=== PATIENT | female | born 1980 | race Caucasian/White ===

== ENCOUNTER 2016-08-11 10:37 | Inpatient (IN) | payer OTHER ==
[~2016-08-11] VITALS: Ht 160 cm; Wt 114.8 kg
[2016-08-11 10:42] VITALS: BP 137/74; PULSE 77; RESP 16; TEMP 98; O2SAT 96
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
[2016-08-11] MEDS ORDERED: MORPHINE SULFATE 4 MG/ML INJ IV PUSH ONE ×2 (11:15→14:15)
[2016-08-11] MEDS ORDERED: SODIUM CHLORIDE 0.9% FLUSH 5 ML FLUSH IVF PRN ×2 (11:15→15:30)
[2016-08-11] MEDS ORDERED: ONDANSETRON HCL 4 MG/2 ML VIAL IVP ONE (11:15)
[2016-08-11 11:26] VITALS: RESP 18; O2SAT 97
[2016-08-11 11:29] LABS: AUTOMATED NEUTROPHIL # 5.2 TH/MM3 (1.8-7.7); BASOPHIL % 0.4 % (0.0-2.0); EOSINOPHIL # 0.3 TH/MM3 (0-0.4); EOSINOPHIL % 3.3 % (0.0-4.0); HEMATOCRIT 41.7 % (35.0-46.0); HEMO FLAGS DIFF FINAL; LYMPH % 31.9 % (9.0-44.0); LYMPHOCYTE # 2.9 TH/MM3 (1.0-4.8); MEAN CELL VOLUME 87.2 FL (80.0-100.0); MEAN CORPUSCULAR HGB CONC 33.2 % (32.0-36.0); MONO % 7.3 % (0.0-8.0); NEUT % 57.1 % (16.0-70.0); PLATELET COUNT 215 TH/MM3 (150-450); RED BLOOD COUNT 4.78 MIL/MM3 (4.00-5.30); RED CELL DISTRIBUTION WIDTH 14.8 % (11.6-17.2); WHITE BLOOD COUNT 9.2 TH/MM3 (4.0-11.0)
[2016-08-11 11:36] LABS: APTT (PATIENT) 23.5 SEC (24.3-30.1); INTERNATIONAL NORMALIZED RATIO 0.9 RATIO; PROTHROMBIN TIME - PATIENT 10.1 SEC (9.8-11.6)
[2016-08-11 11:44] LABS: BICARBONATE 23.5 MEQ/L (21.0-32.0); POTASSIUM 3.7 MEQ/L (3.5-5.1)
[2016-08-11] MEDS ORDERED: SODIUM CHLOR 0.9% 1000 ML INJ 1,000 ML IV SCH (12:20)
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
[2016-08-11] MEDS ORDERED: LIDOCAINE 1%/EPINEPHrine 1:100,000 SOLN 20 ML VIAL INFIL ONE (12:30)
[2016-08-11] MEDS ORDERED: TETANUS/DIPHTHERIA TOXOID ADULT 0.5 ML VIAL IM ONE (12:30)
[2016-08-11] MEDS ORDERED: IOHEXOL 350 MG/ML 10 ML VIAL (for RAD DIAG) IV ONE (13:19)
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
[2016-08-11] MEDS ORDERED: Post-op Orders (for Pharmacy) MISC XX ONE (15:30)
[2016-08-11] MEDS ORDERED: NALOXONE HCL 0.4 MG/ML AMP IV PRN (15:30)
[2016-08-11] MEDS: SODIUM CHLOR 0.9% 1000 ML INJ 1,000 ML IV SCH (16:39)
[2016-08-11] MEDS: PANTOPRAZOLE SOD 40 MG DELAYED RELEASE TAB PO SCH (16:40)
[2016-08-11] MEDS: MORPHINE SULFATE 4 MG/ML INJ IV PRN ×4 (16:41→23:43)
[2016-08-11] MEDS: ENOXAPARIN SODIUM 40 MG/0.4 ML SYRINGE SQ SCH (17:00)
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
[2016-08-11 17:49] VITALS: BP 151/80; PULSE 76; RESP 18; O2SAT 97
[2016-08-11] MEDS: oxyCODONE/ACETAMINOPHEN 5 MG/325 MG TAB PO PRN ×2 (18:24→22:28)
[2016-08-11] MEDS: ONDANSETRON HCL 4 MG/2 ML VIAL IV PRN ×2 (18:26→21:43)
[2016-08-11] MEDS: DOCUSATE SODIUM 100 MG CAP PO SCH (21:00)
[2016-08-11 21:35] VITALS: BP 142/83; PULSE 85; RESP 17; TEMP 97.5; O2SAT 94
[2016-08-11] MEDS: SODIUM CHLORIDE 0.9% FLUSH 5 ML FLUSH IVF SCH (21:35)
[2016-08-11] MEDS: CYCLOBENZAPRINE HCL 10 MG TAB PO PRN (21:38)
[2016-08-11] MEDS ORDERED: METOPROLOL TARTRATE 25 MG TAB PO PRN (21:45)
[2016-08-11] MEDS ORDERED: INSULIN HUMAN REGULAR 1,000 UNITS/10 ML VIAL SQ PRN (21:45)
[2016-08-11] MEDS ORDERED: LACTATED RINGER'S 1000 ML IV SCH (21:45)
[2016-08-11] MEDS ORDERED: SODIUM CHLORID 0.9% 500 ML IV SCH (21:45)
[2016-08-12] VITALS (8 sets, daily range): BP systolic 129–189; BP diastolic 60–85; PULSE 77–85; RESP 17–18; TEMP 96.5–98.2; O2SAT 94–97
[2016-08-12] MEDS: SODIUM CHLOR 0.9% 1000 ML INJ 1,000 ML IV SCH (01:28)
[2016-08-12] MEDS: MORPHINE SULFATE 4 MG/ML INJ IV PRN ×3 (01:55→05:50)
[2016-08-12] MEDS: oxyCODONE/ACETAMINOPHEN 5 MG/325 MG TAB PO PRN (02:52)
[2016-08-12] MEDS: CYCLOBENZAPRINE HCL 10 MG TAB PO PRN (02:52)
[2016-08-12] MEDS: ONDANSETRON HCL 4 MG/2 ML VIAL IV PRN (03:55)
[2016-08-12 06:13] LABS: HEMATOCRIT 35.1 % (35.0-46.0); MEAN CELL VOLUME 86.9 FL (80.0-100.0); MEAN CORPUSCULAR HGB CONC 33.4 % (32.0-36.0); PLATELET COUNT 187 TH/MM3 (150-450); RED BLOOD COUNT 4.04 MIL/MM3 (4.00-5.30); RED CELL DISTRIBUTION WIDTH 14.5 % (11.6-17.2); REVIEW FLAG FINAL; WHITE BLOOD COUNT 11.1 TH/MM3 (4.0-11.0)
[2016-08-12 06:35] LABS: BICARBONATE 23.2 MEQ/L (21.0-32.0); MAGNESIUM 1.8 MG/DL (1.5-2.5); POTASSIUM 3.6 MEQ/L (3.5-5.1)
[2016-08-12] MEDS ORDERED: GENTAMICIN SULFATE 80 MG/2 ML VIAL ONE (06:42)
[2016-08-12] MEDS ORDERED: SODIUM CHLOR 0.9% 250 ML INJ 250 ML ONE (06:42)
[2016-08-12] MEDS ORDERED: VANCOMYCIN HCL 1000 MG VIAL ONE (06:42)
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
[2016-08-12] MEDS ORDERED: MORPHINE SULFATE 10 MG/ML INJ IV ONE (07:02)
[2016-08-12] MEDS ORDERED: ACETAMINOPHEN 1000 MG/100 ML VIAL IV ONE (07:10)
[2016-08-12] MEDS ORDERED: HYDROmorphone HCL PF 2 MG/ML VIAL ONE (07:10)
[2016-08-12] MEDS ORDERED: MIDAZOLAM HCL 5 MG/5 ML VIAL ONE (07:12)
[2016-08-12] MEDS ORDERED: BACITRACIN TOP OINT 15 GM TUBE ONE (07:29)
[2016-08-12] MEDS ORDERED: ceFAZolin 2 GM PREMIX 50 ML ONE (07:32)
[2016-08-12] MEDS ORDERED: MORPHINE SULFATE 4 MG/ML INJ IV PUSH PRN (08:15)
--- NOTE | 2016-08-12 08:22 | PD.OP ---
cc: Parish Silva MD Operative Report Date of Surgery: Aug 12, 2016 Preoperative Diagnosis: Comminuted left tibial plateau fracture, left leg compartment syndrome Postoperative Diagnosis: Procedure: Compartment pressure monitor checks, external fixation left leg, closed reduction with manipulation of left tibia bicondylar plateau, fasciotomy of anterior and lateral compartments left leg, application of wound VAC dressing Surgeon: Parish Silva Meteorologist Liaison(s): PRAMOD Field PA-C The surgical procedure was assisted by my physician assistant financial accountant. My P.A. presence was necessary throughout this case for the manipulation and positioning of the surgical extremity. My P.A. was assisting me throughout the duration of this procedure. The skill set of a physician assistant financial accountant was medically necessary to complete this procedure. During the surgical case the light rail signal technician was working at the back table and the physician assistant financial accountant was directly assisting me. Operation and Findings: This patient sustained an injury resulting in comminuted fractures of [left tibial plateau]. Patient was seen and evaluated preoperatively and found to have too much swelling to proceed with open reduction internal fixation. Risk and benefits of surgery were discussed in depth with patient and informed consent was confirmed. Surgical site was marked. Patient was brought to operating room and placed on the OR table. Patient was given IV sedation and GETA. Patient received IV antibiotics and timeout procedure was performed. Operative leg was prepped with alcohol followed by Hibiclens and draped in the usual sterile fashion. Procedure began with compartment pressure monitor checks. Using the [place] pressure monitor gauge the anterior, lateral, and posterior compartments were measured. The anterior and lateral compartments measured 48 mmHg and 50 mmHg. The deep posterior compartment and superficial posterior compartment measured 20 mmHg and 22 mmHg Next attention was turned towards external fixation. Two small incisions were made along the anterior femur and the tibia. Soft tissue was dissected bluntly. Cannulas were placed down to the cortex of bone. Pin sites were predrilled. Synthes BETH-coated pins were placed into the femur and tibia. Fluoroscopy was used to confirm appropriate pin placement. An external fixator construct was now created with clamps and bars. Next attention was turned to reduction. Traction was applied. Fracture was manipulated. Good alignment of the fracture was obtained. Fluoroscopy was used to confirm appropriate alignment of fracture. The external fixator was now tightened to hold reduction. Next attention was turned to fasciotomy. A 5 inch incision was made over the anterolateral calf. Subcutaneous tissue dissected with Bovie. The fascia of the anterior compartment was now opened using Bovie electrocautery. The fascia of the lateral compartment was also opened. The muscle appeared to be healthy and viable. At this point all compartment were palpated and felt to be very soft. Next attention was turned to VAC dressing. A wound VAC dressing was cut to fit over the fasciotomy. VAC dressing was sealed appropriately. Sterile dressings were applied around the external fixator pins. Patient was awakened and transferred to recovery room in stable condition. Parish Silva MD Aug 12, 2016 08:21
[2016-08-12] MEDS ORDERED: NEOSTIGMINE 3 MG/3 ML SYR IV ONE (08:28)
[2016-08-12] MEDS ORDERED: ONDANSETRON HCL 4 MG/2 ML VIAL IV PUSH ONE (08:28)
[2016-08-12] MEDS ORDERED: PROPOFOL 200 MG/20 ML AMP IV ONE (08:28)
[2016-08-12] MEDS ORDERED: INSULIN HUMAN REGULAR 1,000 UNITS/10 ML VIAL SQ PRN (08:45)
[2016-08-12] MEDS ORDERED: LACTATED RINGER'S 1000 ML IV SCH (08:45)
[2016-08-12] MEDS ORDERED: SODIUM CHLORID 0.9% 500 ML IV SCH (08:45)
[2016-08-12] MEDS ORDERED: METOPROLOL TARTRATE 25 MG TAB PO PRN (08:45)
[2016-08-12] MEDS ORDERED: *RESP: ALBUTEROL 2.5 MG/3 ML NEB (PRN) PERIprocedural Use ONLY NEB ONE (08:53)
[2016-08-12] MEDS ORDERED: *morphine SULFATE 8 MG/ML PERIprocedure ONLY ONE ×3 (08:53→09:09)
[2016-08-12] MEDS ORDERED: fentaNYL CITRATE 250 MCG/5 ML AMP ONE (08:58)
[2016-08-12] MEDS: DOCUSATE SODIUM 100 MG CAP PO SCH ×2 (09:00→20:51)
[2016-08-12] MEDS ORDERED: DO NOT ADM ANY ANTICOAGULANT DRUGS XX PRN (09:00)
[2016-08-12] MEDS: SODIUM CHLORIDE 0.9% FLUSH 5 ML FLUSH IVF SCH ×2 (09:00→20:50)
[2016-08-12] MEDS ORDERED: *HYDROmorphone PF 1 MG VIAL PERIprocedural Use ONLY ONE (09:13)
[2016-08-12] MEDS ORDERED: *diphenhydrAMINE HCL 50 MG/ML VIAL PERIprocedural Use ONLY ONE (09:19)
[2016-08-12] MEDS ORDERED: HYDROmorphone HCL PCA 6 MG/30 ML IV ONE (09:35)
[2016-08-12] MEDS: HYDROmorphone HCL PCA 6 MG/30 ML IV SCH ×2 (09:40→18:24)
[2016-08-12] MEDS: LACTATED RINGER'S 1000 ML INJ 1,000 ML IV SCH ×2 (09:40→18:14)
[2016-08-12] MEDS ORDERED: NALOXONE HCL 0.4 MG/ML AMP IV PRN (10:30)
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
[2016-08-12] MEDS: ENOXAPARIN SODIUM 40 MG/0.4 ML SYRINGE SQ SCH (11:29)
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
[2016-08-12] MEDS: PCA - TOTAL MG DILAUDID DELIVERED PER SHIFT SCH ×2 (14:00→20:53)
[2016-08-12] MEDS: KETOROLAC TROMETHAMINE 30 MG/ML (IVP) VIAL IVP SCH ×2 (15:15→20:51)
[2016-08-12] MEDS: ceFAZolin 2 GM PREMIX 50 ML IV SCH ×2 (15:15→21:45)
[2016-08-12] MEDS: PANTOPRAZOLE SOD 40 MG DELAYED RELEASE TAB PO SCH (15:16)
--- NOTE | 2016-08-12 15:32 | RADRPT ---
EXAM DATE/TIME: 08/12/2016 08:56 [facility] COMPARISON: No previous studies available for comparison. INDICATIONS : Left knee external fixation. MEDICAL HISTORY : None. SURGICAL HISTORY : None. ENCOUNTER: Subsequent ACUITY: 2 days PAIN SCORE: Non-responsive. LOCATION: Left tibial plateau FINDINGS: Comminuted fracture the proximal tibia and fibular head is present with intra-articular extension in the lateral tibial plateau. The alignment is anatomic. CONCLUSION: 1. Comminuted fracture as above Bassem Sharp MD on August 12, 2016 at 15:30 Board Certified Radiologist. This report was verified electronically.
[2016-08-12] MEDS: ACETAMINOPHEN/HYDROcodone 325 MG/10 MG TAB PO PRN ×2 (16:28→22:26)
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
[2016-08-12] MEDS: MAGNESIUM HYDROXIDE SUSP 30 ML CUP PO SCH (20:51)
[2016-08-12] MEDS: diphenhydrAMINE HCL 25 MG CAP PO PRN (21:44)
[2016-08-13] VITALS (7 sets, daily range): BP systolic 101–172; BP diastolic 51–71; PULSE 78–86; RESP 18–20; TEMP 96.2–97.7; O2SAT 93–98
[2016-08-13] MEDS: ACETAMINOPHEN/HYDROcodone 325 MG/10 MG TAB PO PRN ×7 (01:11→21:17)
[2016-08-13] MEDS: HYDROmorphone HCL PCA 6 MG/30 ML IV SCH ×3 (01:18→19:05)
[2016-08-13] MEDS: diphenhydrAMINE HCL 25 MG CAP PO PRN (03:07)
[2016-08-13] MEDS: CYCLOBENZAPRINE HCL 10 MG TAB PO PRN ×3 (03:07→21:24)
[2016-08-13] MEDS: PCA - TOTAL MG DILAUDID DELIVERED PER SHIFT SCH ×3 (06:00→22:00)
[2016-08-13] MEDS: KETOROLAC TROMETHAMINE 30 MG/ML (IVP) VIAL IVP SCH ×3 (06:07→21:17)
[2016-08-13] MEDS: ceFAZolin 2 GM PREMIX 50 ML IV SCH ×3 (06:08→22:21)
--- NOTE | 2016-08-13 06:51 | PD.ORT.PN ---
Subjective Subjective Remarks POD 1 s/p fasciotomy and Exfix application to left tibial plateau fx doing well. pain controlled. Objective Vitals Vital Signs Date Time Temp Pulse Resp B/P Pulse Ox O2 Delivery O2 Flow Rate FiO2 08/13/16 06:00 20 08/13/16 05:16 20 08/13/16 04:14 97.2 80 18 140/63 95 08/13/16 01:48 20 08/13/16 01:18 20 08/13/16 00:26 97.2 80 18 113/51 95 08/12/16 21:51 20 08/12/16 20:53 20 08/12/16 20:45 96.5 84 18 129/60 97 08/12/16 18:24 18 08/12/16 16:14 94 21 08/12/16 16:00 97.7 80 18 132/79 95 08/12/16 12:15 Room Air 08/12/16 12:00 96.7 80 18 131/68 94 08/12/16 11:31 94 08/12/16 10:17 97.5 81 18 189/85 95 08/12/16 09:45 98.2 79 14 143/87 96 Nasal Cannula 3 08/12/16 09:40 14 08/12/16 09:30 81 14 165/80 96 Nasal Cannula 3 08/12/16 09:15 82 16 140/86 93 Nasal Cannula 3 08/12/16 09:00 82 16 130/91 96 Nasal Cannula 3 08/12/16 08:45 83 16 103/52 96 Nasal Cannula 3 08/12/16 08:38 98.7 83 16 161/85 98 Nasal Cannula 3 I/O 08/12/16 08/12/16 08/12/16 08/13/16 08/13/16 08/13/16 07:00 15:00 23:00 07:00 15:00 23:00 Intake Total 0 ml 1020 ml 480 ml 1322 ml Output Total 210 ml Balance 0 ml 810 ml 480 ml 1322 ml Intake Oral 0 ml 720 ml 480 ml 480 ml IV Total 300 ml 842 ml Output Urine Total 200 ml Estimated Blood Loss 10 ml # Voids 2 6 1 3 # Bowel Movements 0 0 0 0 Result Diagram: 08/12/16 0550 08/12/16 0550 Imaging Last 24 hours Impressions Foot X-Ray 08/11/16 1226 Signed Impressions: Service Date/Time: Thursday, August 11, 2016 13:30 - CONCLUSION: Unremarkable examination of the right foot. Roderick Pedroza Jr., MD Chest CT 08/11/16 1226 Signed Impressions: Service Date/Time: Thursday, August 11, 2016 13:04 - CONCLUSION: 1. CT imaging through the thorax is within normal limits. 2. 1.8 cm nonspecific low attenuation lesion in the upper aspect of the right lobe of the liver. Craig Zimmerman MD Abdomen/Pelvis CT 08/11/16 1226 Signed Impressions: Service Date/Time: Thursday, August 11, 2016 13:04 - CONCLUSION: 1. 1.7 cm low attenuation lesion in the liver possibly representing a small hemangioma. It is too small to definitively characterize. 2. Sclerotic changes around the right sacroiliac joint suggesting a sacroiliitis. 3. CT imaging through the abdomen and pelvis is otherwise unremarkable. Craig Zimmerman MD Elbow X-Ray 08/11/16 1126 Signed Impressions: Service Date/Time: Thursday, August 11, 2016 12:01 - CONCLUSION: Negative examination Jose Francisco Guy MD Head CT 08/11/16 1115 Signed Impressions: Service Date/Time: Thursday, August 11, 2016 13:04 - CONCLUSION: Normal examination. Jose Francisco Guy MD Cervical Spine CT 08/11/16 1115 Signed Impressions: Service Date/Time: Thursday, August 11, 2016 13:04 - CONCLUSION: Normal examination. Jose Francisco Guy MD Wrist X-Ray 08/11/16 1102 Signed Impressions: Service Date/Time: Thursday, August 11, 2016 12:00 - CONCLUSION: Unremarkable examination of the left wrist. Jose Francisco Guy MD Wrist X-Ray 08/11/16 1102 Signed Impressions: Service Date/Time: Thursday, August 11, 2016 11:57 - CONCLUSION: Unremarkable examination of the right wrist. Jose Francisco Guy MD Tibia/Fibula X-Ray 08/11/16 1102 Signed Impressions: Service Date/Time: Thursday, August 11, 2016 12:08 - CONCLUSION: Fracture of proximal tibia including the plateau and fibular head. Maulik Zimmerman MD FACR Femur X-Ray 08/11/16 1102 Signed Impressions: Service Date/Time: Thursday, August 11, 2016 13:34 - CONCLUSION: Intact femur . Large joint effusion suprapatellar bursa. Fractures of proximal tibia and fibula Jose Francisco Guy MD Objective Remarks LLE: +exfix. pinsites bleeding. wound vac in place and good seal. compartments softer. good dorsiflexion. NVI Assessment & Plan Assessment and Plan 1) Left Tibial Plateau fx with compartment syndrome s/p fasciotomy and exfix - POD 1 NWB -elevat -maintain vac -will recheck swelling thursday for potential fasciotomy closure 2) Bialteral Wrist sprains -monitor -WBAT Johnathon Swan Aug 13, 2016 06:51
[2016-08-13] MEDS ORDERED: LACTULOSE SYRUP 20 GM/30 ML CUP PO ONE (07:45)
[2016-08-13 08:28] LABS: HEMATOCRIT 28.7 % (35.0-46.0); REVIEW FLAG FINAL
[2016-08-13] MEDS: DOCUSATE SODIUM 50 MG/SENNA 8.6 MG TAB PO SCH ×2 (09:00→21:16)
[2016-08-13] MEDS: SODIUM CHLORIDE 0.9% FLUSH 5 ML FLUSH IVF SCH ×2 (09:00→21:17)
[2016-08-13] MEDS: FAMOTIDINE 20 MG TAB PO SCH ×2 (09:05→21:17)
[2016-08-13] MEDS: LACTATED RINGER'S 1000 ML INJ 1,000 ML IV SCH (11:37)
[2016-08-13] MEDS: ENOXAPARIN SODIUM 40 MG/0.4 ML SYRINGE SQ SCH (18:35)
[2016-08-13] MEDS: MAGNESIUM HYDROXIDE SUSP 30 ML CUP PO SCH (21:00)
[2016-08-14] VITALS (7 sets, daily range): BP systolic 106–151; BP diastolic 51–81; PULSE 77–102; RESP 16–20; TEMP 96.6–99.9; O2SAT 96–99
[2016-08-14] MEDS: LACTATED RINGER'S 1000 ML INJ 1,000 ML IV SCH ×3 (00:14→21:26)
[2016-08-14] MEDS: ACETAMINOPHEN/HYDROcodone 325 MG/10 MG TAB PO PRN ×8 (00:23→21:25)
[2016-08-14] MEDS: CYCLOBENZAPRINE HCL 10 MG TAB PO PRN ×4 (03:39→21:25)
[2016-08-14] MEDS: HYDROmorphone HCL PCA 6 MG/30 ML IV SCH ×2 (05:12→16:01)
[2016-08-14] MEDS: PCA - TOTAL MG DILAUDID DELIVERED PER SHIFT SCH ×3 (05:20→22:00)
[2016-08-14] MEDS: KETOROLAC TROMETHAMINE 30 MG/ML (IVP) VIAL IVP SCH (06:06)
[2016-08-14] MEDS: ceFAZolin 2 GM PREMIX 50 ML IV SCH (06:06)
--- NOTE | 2016-08-14 06:42 | PD.ORT.PN ---
Subjective Subjective Remarks POD 2 s/p fasciotomy and Exfix application to left tibial plateau fx doing well. pain controlled. Objective Vitals Vital Signs Date Time Temp Pulse Resp B/P Pulse Ox O2 Delivery O2 Flow Rate FiO2 08/14/16 05:20 18 08/14/16 05:12 18 08/14/16 04:00 96.6 90 20 145/73 96 08/14/16 00:00 97.1 77 20 139/81 96 08/13/16 22:00 14 08/13/16 20:00 97.4 78 20 172/71 98 08/13/16 19:05 18 08/13/16 16:00 96.2 86 18 140/68 96 08/13/16 12:00 97.6 83 18 101/51 93 08/13/16 09:40 97 21 08/13/16 08:00 97.7 80 18 118/62 94 08/13/16 07:07 20 I/O 08/13/16 08/13/16 08/13/16 08/14/16 08/14/16 08/14/16 07:00 15:00 23:00 07:00 15:00 23:00 Intake Total 1322 ml 1228 ml 1061 ml 676 ml Output Total 200 ml 50 ml 50 ml Balance 1322 ml 1028 ml 1011 ml 626 ml Intake Oral 480 ml 960 ml 750 ml 480 ml IV Total 842 ml 268 ml 311 ml 196 ml Drainage Total 200 ml 50 ml 50 ml # Voids 3 3 3 1 # Bowel Movements 0 0 Result Diagram: 08/13/16 0710 08/12/16 0550 Imaging Last 24 hours Impressions Foot X-Ray 08/11/161225 Signed Impressions: Service Date/Time: Thursday, August 11, 2016 13:30 - CONCLUSION: Unremarkable examination of the right foot. Roderick Pedroza Jr., MD Chest CT 08/11/161225 Signed Impressions: Service Date/Time: Thursday, August 11, 2016 13:04 - CONCLUSION: 1. CT imaging through the thorax is within normal limits. 2. 1.8 cm nonspecific low attenuation lesion in the upper aspect of the right lobe of the liver. Craig Zimmerman MD Abdomen/Pelvis CT 08/11/161225 Signed Impressions: Service Date/Time: Thursday, August 11, 2016 13:04 - CONCLUSION: 1. 1.7 cm low attenuation lesion in the liver possibly representing a small hemangioma. It is too small to definitively characterize. 2. Sclerotic changes around the right sacroiliac joint suggesting a sacroiliitis. 3. CT imaging through the abdomen and pelvis is otherwise unremarkable. Craig Zimmerman MD Elbow X-Ray 08/11/16 1126 Signed Impressions: Service Date/Time: Thursday, August 11, 2016 12:01 - CONCLUSION: Negative examination Jose Francisco Guy MD Head CT 08/11/16 1115 Signed Impressions: Service Date/Time: Thursday, August 11, 2016 13:04 - CONCLUSION: Normal examination. Jose Francisco Guy MD Cervical Spine CT 08/11/16 1115 Signed Impressions: Service Date/Time: Thursday, August 11, 2016 13:04 - CONCLUSION: Normal examination. Jose Francisco Guy MD Wrist X-Ray 08/11/16 1102 Signed Impressions: Service Date/Time: Thursday, August 11, 2016 12:00 - CONCLUSION: Unremarkable examination of the left wrist. Jose Francisco Guy MD Wrist X-Ray 08/11/16 1102 Signed Impressions: Service Date/Time: Thursday, August 11, 2016 11:57 - CONCLUSION: Unremarkable examination of the right wrist. Jose Francisco Guy MD Tibia/Fibula X-Ray 08/11/16 1102 Signed Impressions: Service Date/Time: Thursday, August 11, 2016 12:08 - CONCLUSION: Fracture of proximal tibia including the plateau and fibular head. Maulik Zimmerman MD FACR Femur X-Ray 08/11/16 1102 Signed Impressions: Service Date/Time: Thursday, August 11, 2016 13:34 - CONCLUSION: Intact femur . Large joint effusion suprapatellar bursa. Fractures of proximal tibia and fibula Jose Francisco Guy MD Objective Remarks LLE: +exfix. pinsites bleeding. wound vac in place and good seal. compartments softer. good dorsiflexion. NVI Assessment & Plan Assessment and Plan 1) Left Tibial Plateau fx with compartment syndrome s/p fasciotomy and exfix - POD 2 NWB -elevat -maintain vac -will recheck swelling thursday for potential fasciotomy closure -npo after MN -sign consents 2) Bialteral Wrist sprains -monitor -WBAT Johnathon Swan Aug 14, 2016 06:42
[2016-08-14] MEDS: SODIUM CHLORIDE 0.9% FLUSH 5 ML FLUSH IVF SCH ×2 (09:00→21:00)
[2016-08-14] MEDS: DOCUSATE SODIUM 50 MG/SENNA 8.6 MG TAB PO SCH ×2 (09:14→21:24)
[2016-08-14] MEDS: BISACODYL EC 5 MG TABEC PO PRN ×2 (09:14→21:25)
[2016-08-14] MEDS: FAMOTIDINE 20 MG TAB PO SCH ×2 (09:15→21:24)
[2016-08-14] MEDS: ENOXAPARIN SODIUM 40 MG/0.4 ML SYRINGE SQ SCH (15:56)
[2016-08-14] MEDS: MAGNESIUM HYDROXIDE SUSP 30 ML CUP PO SCH (21:00)
[2016-08-15] VITALS: BP 156/76; PULSE 99; RESP 17; TEMP 99.4; O2SAT 96
[2016-08-15] MEDS: ACETAMINOPHEN/HYDROcodone 325 MG/10 MG TAB PO PRN ×7 (00:16→20:46)
[2016-08-15] MEDS: HYDROmorphone HCL PCA 6 MG/30 ML IV SCH ×2 (01:47→16:12)
[2016-08-15] MEDS: CYCLOBENZAPRINE HCL 10 MG TAB PO PRN ×3 (03:27→18:08)
[2016-08-15 04:00] VITALS: BP 119/69; PULSE 87; RESP 16; TEMP 97.9; O2SAT 94
[2016-08-15] MEDS: PCA - TOTAL MG DILAUDID DELIVERED PER SHIFT SCH ×3 (06:00→22:00)
--- NOTE | 2016-08-15 06:45 | PD.ORT.PN ---
Subjective Subjective Remarks POD 3 s/p fasciotomy and Exfix application to left tibial plateau fx doing well. pain controlled. Objective Vitals Vital Signs Date Time Temp Pulse Resp B/P Pulse Ox O2 Delivery O2 Flow Rate FiO2 08/15/16 04:00 97.9 87 16 119/69 94 08/15/16 02:17 16 08/15/16 01:47 16 08/15/16 00:00 99.4 99 17 156/76 96 08/14/16 22:00 16 08/14/16 20:00 99.9 102 17 151/73 97 08/14/16 16:20 97.2 82 18 120/64 97 08/14/16 16:01 16 08/14/16 15:56 16 08/14/16 12:08 96.9 81 17 106/51 96 08/14/16 10:10 99 21 08/14/16 08:14 97.0 77 16 149/68 96 I/O 08/14/16 08/14/16 08/14/16 08/15/16 08/15/16 08/15/16 07:00 15:00 23:00 07:00 15:00 23:00 Intake Total 676 ml 958 ml 0 ml Output Total 50 ml 100 ml Balance 626 ml 858 ml 0 ml Intake Oral 480 ml 480 ml 0 ml IV Total 196 ml 478 ml Drainage Total 50 ml 100 ml # Voids 1 1 2 # Bowel Movements 0 0 Result Diagram: 08/13/16 0710 08/12/16 0550 Imaging Last 24 hours Impressions Foot X-Ray 08/11/166 Signed Impressions: Service Date/Time: Thursday, August 11, 2016 13:30 - CONCLUSION: Unremarkable examination of the right foot. Roderick Pedroza Jr., MD Chest CT 08/11/16 1226 Signed Impressions: Service Date/Time: Thursday, August 11, 2016 13:04 - CONCLUSION: 1. CT imaging through the thorax is within normal limits. 2. 1.8 cm nonspecific low attenuation lesion in the upper aspect of the right lobe of the liver. Craig Zimmerman MD Abdomen/Pelvis CT 08/11/166 Signed Impressions: Service Date/Time: Thursday, August 11, 2016 13:04 - CONCLUSION: 1. 1.7 cm low attenuation lesion in the liver possibly representing a small hemangioma. It is too small to definitively characterize. 2. Sclerotic changes around the right sacroiliac joint suggesting a sacroiliitis. 3. CT imaging through the abdomen and pelvis is otherwise unremarkable. Craig Zimmerman MD Elbow X-Ray 08/11/16 1126 Signed Impressions: Service Date/Time: Thursday, August 11, 2016 12:01 - CONCLUSION: Negative examination Jose Francisco Guy MD Head CT 08/11/16 1115 Signed Impressions: Service Date/Time: Thursday, August 11, 2016 13:04 - CONCLUSION: Normal examination. Jose Francisco Guy MD Cervical Spine CT 08/11/16 1115 Signed Impressions: Service Date/Time: Thursday, August 11, 2016 13:04 - CONCLUSION: Normal examination. Jose Francisco Guy MD Wrist X-Ray 08/11/16 1102 Signed Impressions: Service Date/Time: Thursday, August 11, 2016 12:00 - CONCLUSION: Unremarkable examination of the left wrist. Jose Francisco Guy MD Wrist X-Ray 08/11/16 1102 Signed Impressions: Service Date/Time: Thursday, August 11, 2016 11:57 - CONCLUSION: Unremarkable examination of the right wrist. Jose Francisco Guy MD Tibia/Fibula X-Ray 08/11/16 1102 Signed Impressions: Service Date/Time: Thursday, August 11, 2016 12:08 - CONCLUSION: Fracture of proximal tibia including the plateau and fibular head. Maulik Zimmerman MD FACR Femur X-Ray 08/11/16 1102 Signed Impressions: Service Date/Time: Thursday, August 11, 2016 13:34 - CONCLUSION: Intact femur . Large joint effusion suprapatellar bursa. Fractures of proximal tibia and fibula Jose Francisco Guy MD Objective Remarks LLE: +exfix. pinsites bleeding. wound vac in place and good seal. compartments softer. good dorsiflexion. NVI Assessment & Plan Assessment and Plan 1) Left Tibial Plateau fx with compartment syndrome s/p fasciotomy and exfix - POD 3 NWB -elevate -maintain vac -plan for surgery today for fasciotomy closure 2) Bialteral Wrist sprains -monitor -WBAT Johnathon Swan Aug 15, 2016 06:45
[2016-08-15] MEDS: SODIUM CHLORIDE 0.9% FLUSH 5 ML FLUSH IVF SCH ×2 (07:34→20:46)
[2016-08-15] MEDS: DOCUSATE SODIUM 50 MG/SENNA 8.6 MG TAB PO SCH ×2 (07:34→20:46)
[2016-08-15] MEDS: FAMOTIDINE 20 MG TAB PO SCH ×2 (07:34→20:46)
[2016-08-15 08:00] VITALS: BP 122/72; PULSE 98; RESP 20; TEMP 96.4; O2SAT 98
[2016-08-15] MEDS ORDERED: LIDOCAINE HCL 2% JELLY 5 ML SYRINGE ONE (09:56)
[2016-08-15] MEDS ORDERED: ACETAMINOPHEN 1000 MG/100 ML VIAL IV ONE (10:23)
[2016-08-15] MEDS ORDERED: MIDAZOLAM HCL 2 MG/2 ML VIAL ONE (10:23)
[2016-08-15] MEDS ORDERED: FAMOTIDINE 20 MG/2 ML VIAL ONE (10:23)
[2016-08-15] MEDS ORDERED: ONDANSETRON HCL 4 MG/2 ML VIAL IV PUSH ONE (10:38)
[2016-08-15] MEDS ORDERED: PROPOFOL 200 MG/20 ML AMP IV ONE (10:38)
[2016-08-15] MEDS ORDERED: NEOSTIGMINE 3 MG/3 ML SYR IV ONE (10:38)
[2016-08-15] MEDS ORDERED: GENTAMICIN SULFATE 80 MG/2 ML VIAL XX ONE (11:33)
[2016-08-15] MEDS ORDERED: VANCOMYCIN HCL 1000 MG VIAL ONE (11:36)
[2016-08-15] MEDS ORDERED: ceFAZolin INJ 1,000 MG VIAL ONE (11:36)
[2016-08-15] MEDS ORDERED: SODIUM CHLOR 0.9% 250 ML INJ 250 ML ONE (11:37)
[2016-08-15] MEDS: LACTATED RINGER'S 1000 ML INJ 1,000 ML IV SCH (11:52)
[2016-08-15] MEDS ORDERED: BACITRACIN TOP OINT 15 GM TUBE ONE (11:52)
--- NOTE | 2016-08-15 11:57 | PD.OP ---
cc: Parish Silva MD Operative Report Date of Surgery: Aug 15, 2016 Preoperative Diagnosis: Open left leg fasciotomy Postoperative Diagnosis: Same Procedure: Left leg fasciotomy wound closure, wound VAC application Anesthesia: Gen. Surgeon: Parish Silva Lollypop Machine Operator(s): PRAMOD Lozano PA-C The surgical procedure was assisted by my physician grooming assistant. My P.A. presence was necessary throughout this case for the manipulation and positioning of the surgical extremity. My P.A. was assisting me throughout the duration of this procedure. The skill set of a physician grooming assistant was medically necessary to complete this procedure. During the surgical case the surgical instrument repair specialist was working at the back table and the physician grooming assistant was directly assisting me. Operation and Findings: Lynda presented initially with a left tibial plateau fracture. She developed a compartment syndrome which needed fasciotomy. Swelling has improved. Informed consent was obtained and operative site was marked. She was brought to the operating room. She was given IV sedation and general anesthesia. Left leg was prepped with alcohol followed by Hibiclens and draped in usual sterile fashion. She received IV antibiotic's. Procedure began with examination of the wound. Overall the wound was clean. There was no necrotic muscle. The muscle appeared to be healthy and viable. Wound was thoroughly irrigated with sterile saline. At this point attention was turned to closure. Subcutaneous tissue was reapproximated with 3-0 PDS. Skin was now closed with 3-0 nylon. A combination of retention suture and vertical mattress sutures were utilized. The wound was completely closed. There was minimal skin tension after completion of closure. The compartments appeared soft to palpation. Dorsalis pedis pulses palpable. Dressings were applied. An incisional wound VAC was applied over the incision. VAC dressing was sealed appropriately. Patient was transferred to recovery in stable condition. Parish Silva MD Aug 15, 2016 11:57
[2016-08-15] MEDS ORDERED: SODIUM CHLORIDE 0.9% FLUSH 5 ML FLUSH IVF PRN (12:00)
[2016-08-15] MEDS ORDERED: Post-op Orders (for Pharmacy) MISC XX ONE (12:00)
[2016-08-15] MEDS ORDERED: DO NOT ADM ANY ANTICOAGULANT DRUGS XX PRN (12:36)
[2016-08-15] MEDS ORDERED: *RESP: ALBUTEROL 2.5 MG/3 ML NEB (PRN) PERIprocedural Use ONLY NEB ONE (12:38)
[2016-08-15] MEDS ORDERED: *morphine SULFATE 8 MG/ML PERIprocedure ONLY ONE (13:01)
[2016-08-15] MEDS: KETOROLAC TROMETHAMINE 30 MG/ML (IVP) VIAL IVP SCH ×2 (14:00→22:33)
[2016-08-15] MEDS ORDERED: fentaNYL CITRATE 250 MCG/5 ML AMP ONE (14:34)
[2016-08-15 16:00] VITALS: BP 158/80; PULSE 94; RESP 20; TEMP 96.3; O2SAT 95
[2016-08-15 16:01] VITALS: O2SAT 95
[2016-08-15 20:08] VITALS: BP 147/63; PULSE 90; RESP 18; TEMP 97.8; O2SAT 94
[2016-08-15] MEDS: MAGNESIUM HYDROXIDE SUSP 30 ML CUP PO SCH (20:46)
[2016-08-15] MEDS: ceFAZolin 2 GM PREMIX 50 ML IV SCH (20:46)
[2016-08-15] MEDS ORDERED: SODIUM CHLORIDE 0.9% FLUSH 5 ML FLUSH IVF SCH (21:00)
[2016-08-16] VITALS (7 sets, daily range): BP systolic 125–159; BP diastolic 60–78; PULSE 69–85; RESP 16–20; TEMP 96.6–97.8; O2SAT 95–97
[2016-08-16] MEDS: ACETAMINOPHEN/HYDROcodone 325 MG/10 MG TAB PO PRN ×7 (00:09→22:26)
[2016-08-16] MEDS: CYCLOBENZAPRINE HCL 10 MG TAB PO PRN ×4 (00:09→20:19)
[2016-08-16] MEDS: LACTATED RINGER'S 1000 ML INJ 1,000 ML IV SCH ×2 (01:02→12:52)
[2016-08-16] MEDS: ceFAZolin 2 GM PREMIX 50 ML IV SCH ×2 (04:08→12:06)
[2016-08-16] MEDS: HYDROmorphone HCL PCA 6 MG/30 ML IV SCH ×2 (05:22→17:20)
[2016-08-16] MEDS: KETOROLAC TROMETHAMINE 30 MG/ML (IVP) VIAL IVP SCH ×3 (05:30→22:25)
[2016-08-16] MEDS: PCA - TOTAL MG DILAUDID DELIVERED PER SHIFT SCH ×3 (06:00→22:00)
[2016-08-16 06:39] LABS: HEMATOCRIT 25.2 % (35.0-46.0); REVIEW FLAG FINAL
--- NOTE | 2016-08-16 07:45 | PD.ORT.PN ---
Subjective Subjective Remarks Doing 'fine'. Moderate left knee and leg pain but not increasing. Able to get some rest last night. Motivated to improve. No new complaints otherwise. No CP or SOB. Objective Vitals Vital Signs Date Time Temp Pulse Resp B/P Pulse Ox O2 Delivery O2 Flow Rate FiO2 08/16/16 06:00 16 08/16/16 05:22 16 08/16/16 04:11 97.6 69 17 137/60 95 08/16/16 00:17 97.8 85 17 125/61 96 08/15/16 22:00 16 08/15/16 20:08 97.8 90 18 147/63 94 08/15/16 16:12 16 08/15/16 16:01 95 Nasal Cannula 2.00 08/15/16 16:00 96.3 94 20 158/80 95 08/15/16 14:00 97.9 83 15 139/63 95 Nasal Cannula 3 08/15/16 13:50 84 15 137/75 96 Nasal Cannula 3 08/15/16 13:35 77 15 143/82 96 Nasal Cannula 4 08/15/16 13:20 79 15 137/82 92 Nasal Cannula 4 08/15/16 13:05 79 15 122/67 92 Nasal Cannula 4 08/15/16 12:50 77 13 141/84 96 Simple Mask 6 08/15/16 12:35 97.7 88 13 132/83 91 Simple Mask 6 08/15/16 08:00 96.4 98 20 122/72 98 I/O 08/15/16 08/15/16 08/15/16 08/16/16 08/16/16 08/16/16 07:00 15:00 23:00 07:00 15:00 23:00 Intake Total 259 ml 650 ml 240 ml 720 ml Output Total 0 ml Balance 259 ml 650 ml 240 ml 720 ml Intake Oral 0 ml 240 ml 720 ml IV Total 259 ml 150 ml Other 500 ml Stool Total 0 ml # Voids 2 2 1 # Bowel Movements 0 0 Result Diagram: 08/16/16 0530 08/12/16 0550 Imaging Last 24 hours Impressions Foot X-Ray 08/11/166 Signed Impressions: Service Date/Time: Thursday, August 11, 2016 13:30 - CONCLUSION: Unremarkable examination of the right foot. Roderick Pedroza Jr., MD Chest CT 08/11/16 1226 Signed Impressions: Service Date/Time: Thursday, August 11, 2016 13:04 - CONCLUSION: 1. CT imaging through the thorax is within normal limits. 2. 1.8 cm nonspecific low attenuation lesion in the upper aspect of the right lobe of the liver. Craig Zimmerman MD Abdomen/Pelvis CT 08/11/16 1226 Signed Impressions: Service Date/Time: Thursday, August 11, 2016 13:04 - CONCLUSION: 1. 1.7 cm low attenuation lesion in the liver possibly representing a small hemangioma. It is too small to definitively characterize. 2. Sclerotic changes around the right sacroiliac joint suggesting a sacroiliitis. 3. CT imaging through the abdomen and pelvis is otherwise unremarkable. Craig Zimmerman MD Elbow X-Ray 08/11/16 1126 Signed Impressions: Service Date/Time: Thursday, August 11, 2016 12:01 - CONCLUSION: Negative examination Jose Francisco Guy MD Head CT 08/11/16 1115 Signed Impressions: Service Date/Time: Thursday, August 11, 2016 13:04 - CONCLUSION: Normal examination. Jose Francisco Guy MD Cervical Spine CT 08/11/16 1115 Signed Impressions: Service Date/Time: Thursday, August 11, 2016 13:04 - CONCLUSION: Normal examination. Jose Francisco Guy MD Wrist X-Ray 08/11/16 1102 Signed Impressions: Service Date/Time: Thursday, August 11, 2016 12:00 - CONCLUSION: Unremarkable examination of the left wrist. Jose Francisco Guy MD Wrist X-Ray 08/11/16 1102 Signed Impressions: Service Date/Time: Thursday, August 11, 2016 11:57 - CONCLUSION: Unremarkable examination of the right wrist. Jose Francisco Guy MD Tibia/Fibula X-Ray 08/11/16 1102 Signed Impressions: Service Date/Time: Thursday, August 11, 2016 12:08 - CONCLUSION: Fracture of proximal tibia including the plateau and fibular head. Maulik Zimmerman MD FACR Femur X-Ray 08/11/16 1102 Signed Impressions: Service Date/Time: Thursday, August 11, 2016 13:34 - CONCLUSION: Intact femur . Large joint effusion suprapatellar bursa. 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
[2016-08-16] MEDS: DOCUSATE SODIUM 50 MG/SENNA 8.6 MG TAB PO SCH ×2 (08:25→20:20)
[2016-08-16] MEDS: BISACODYL EC 5 MG TABEC PO PRN ×2 (08:27→20:20)
[2016-08-16] MEDS: FAMOTIDINE 20 MG TAB PO SCH ×2 (08:28→20:19)
[2016-08-16] MEDS: SODIUM CHLORIDE 0.9% FLUSH 5 ML FLUSH IVF SCH ×2 (08:29→20:21)
[2016-08-16] MEDS: ENOXAPARIN SODIUM 40 MG/0.4 ML SYRINGE SQ SCH (12:07)
[2016-08-16] MEDS ORDERED: POLYETHYLENE GLYCOL 17 GM PKG PO PRN (14:00)
[2016-08-16] MEDS: MAGNESIUM HYDROXIDE SUSP 30 ML CUP PO SCH (20:21)
[2016-08-17] VITALS (7 sets, daily range): BP systolic 138–152; BP diastolic 64–71; PULSE 77–87; RESP 16–20; TEMP 96.5–97.9; O2SAT 94–99
[2016-08-17] MEDS: ACETAMINOPHEN/HYDROcodone 325 MG/10 MG TAB PO PRN ×7 (01:16→22:12)
[2016-08-17] MEDS: LACTATED RINGER'S 1000 ML INJ 1,000 ML IV SCH ×2 (01:22→20:37)
[2016-08-17] MEDS: CYCLOBENZAPRINE HCL 10 MG TAB PO PRN ×4 (02:28→20:35)
[2016-08-17] MEDS: PCA - TOTAL MG DILAUDID DELIVERED PER SHIFT SCH ×3 (05:05→20:38)
[2016-08-17] MEDS: HYDROmorphone HCL PCA 6 MG/30 ML IV SCH ×2 (05:05→17:21)
[2016-08-17] MEDS: KETOROLAC TROMETHAMINE 30 MG/ML (IVP) VIAL IVP SCH (05:28)
[2016-08-17] MEDS: BISACODYL 10 MG SUPP RECTAL PRN (06:06)
--- NOTE | 2016-08-17 08:06 | PD.ORT.PN ---
Subjective Subjective Remarks Still doing well. Moderate left knee and leg pain but not increasing. Able to rest at night. No new complaints otherwise. No CP or SOB. Questions about further surgery. Objective Vitals Vital Signs Date Time Temp Pulse Resp B/P Pulse Ox O2 Delivery O2 Flow Rate FiO2 08/17/16 05:05 16 08/17/16 05:05 18 08/17/16 04:25 97.9 86 16 138/70 96 08/17/16 00:00 97.3 77 20 152/69 95 08/16/16 22:00 18 08/16/16 20:00 96.6 70 16 140/76 97 08/16/16 17:50 18 08/16/16 17:20 18 08/16/16 16:00 96.6 84 18 159/77 96 08/16/16 14:00 18 08/16/16 12:00 96.7 70 18 135/69 96 08/16/16 10:52 97 21 I/O 08/16/16 08/16/16 08/16/16 08/17/16 08/17/16 08/17/16 07:00 15:00 23:00 07:00 15:00 23:00 Intake Total 720 ml 1785 ml 600 ml 720 ml Output Total 0 ml 800 ml 0 ml Balance 720 ml 985 ml 600 ml 720 ml Intake Oral 720 ml 720 ml 600 ml 720 ml IV Total 1065 ml Output Urine Total 800 ml Stool Total 0 ml Drainage Total 0 ml 0 ml # Voids 1 2 2 2 Result Diagram: 08/16/16 0530 Imaging Last 24 hours Impressions Foot X-Ray 08/11/161225 Signed Impressions: Service Date/Time: Thursday, August 11, 2016 13:30 - CONCLUSION: Unremarkable examination of the right foot. Roderick Pedroza Jr., MD Chest CT 08/11/166 Signed Impressions: Service Date/Time: Thursday, August 11, 2016 13:04 - CONCLUSION: 1. CT imaging through the thorax is within normal limits. 2. 1.8 cm nonspecific low attenuation lesion in the upper aspect of the right lobe of the liver. Craig Zimmerman MD Abdomen/Pelvis CT 08/11/166 Signed Impressions: Service Date/Time: Thursday, August 11, 2016 13:04 - CONCLUSION: 1. 1.7 cm low attenuation lesion in the liver possibly representing a small hemangioma. It is too small to definitively characterize. 2. Sclerotic changes around the right sacroiliac joint suggesting a sacroiliitis. 3. CT imaging through the abdomen and pelvis is otherwise unremarkable. Craig Zimmerman MD Elbow X-Ray 08/11/16 1126 Signed Impressions: Service Date/Time: Thursday, August 11, 2016 12:01 - CONCLUSION: Negative examination Jose Francisco Guy MD Head CT 08/11/16 1115 Signed Impressions: Service Date/Time: Thursday, August 11, 2016 13:04 - CONCLUSION: Normal examination. Jose Francisco Guy MD Cervical Spine CT 08/11/16 1115 Signed Impressions: Service Date/Time: Thursday, August 11, 2016 13:04 - CONCLUSION: Normal examination. Jose Francisco Guy MD Wrist X-Ray 08/11/16 1102 Signed Impressions: Service Date/Time: Thursday, August 11, 2016 12:00 - CONCLUSION: Unremarkable examination of the left wrist. Jose Francisco Guy MD Wrist X-Ray 08/11/16 1102 Signed Impressions: Service Date/Time: Thursday, August 11, 2016 11:57 - CONCLUSION: Unremarkable examination of the right wrist. Jose Francisco Guy MD Tibia/Fibula X-Ray 08/11/16 110 Signed Impressions: Service Date/Time: Thursday, August 11, 2016 12:08 - CONCLUSION: Fracture of proximal tibia including the plateau and fibular head. Maulik Zimmerman MD FACR Femur X-Ray 08/11/16 110 Signed Impressions: Service Date/Time: Thursday, August 11, 2016 13:34 - CONCLUSION: Intact femur . Large joint effusion suprapatellar bursa. 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 Due to age will try to avoid transfusion. Begin Ferrous sulfate 325mg BID. Will not order NPO order at this time. I believe Parish Sharma will be out early this week. Likely will not be able to do surgery until the end of this week or next. Gi Miller Aug 17, 2016 08:06
[2016-08-17] MEDS: DOCUSATE SODIUM 50 MG/SENNA 8.6 MG TAB PO SCH ×2 (08:20→20:36)
[2016-08-17] MEDS: FAMOTIDINE 20 MG TAB PO SCH ×2 (08:20→20:35)
[2016-08-17] MEDS: SODIUM CHLORIDE 0.9% FLUSH 5 ML FLUSH IVF SCH ×2 (08:21→20:36)
[2016-08-17] MEDS: ENOXAPARIN SODIUM 40 MG/0.4 ML SYRINGE SQ SCH (11:10)
[2016-08-17] MEDS: FERROUS SULFATE 325 MG (65 MG ELEMENTAL IRON) TAB PO SCH ×2 (11:11→20:33)
[2016-08-17] MEDS: MAGNESIUM HYDROXIDE SUSP 30 ML CUP PO SCH (20:36)
[2016-08-17] MEDS: diphenhydrAMINE HCL 25 MG CAP PO PRN (20:55)
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
[2016-08-18] VITALS (7 sets, daily range): BP systolic 130–175; BP diastolic 59–76; PULSE 81–89; RESP 16–19; TEMP 97.1–97.9; O2SAT 93–98
[2016-08-18] MEDS: ACETAMINOPHEN/HYDROcodone 325 MG/10 MG TAB PO PRN ×7 (01:02→22:42)
[2016-08-18] MEDS: HYDROmorphone HCL PCA 6 MG/30 ML IV SCH ×2 (03:38→20:49)
[2016-08-18] MEDS: PCA - TOTAL MG DILAUDID DELIVERED PER SHIFT SCH ×3 (06:00→22:00)
--- NOTE | 2016-08-18 07:01 | PD.ORT.PN ---
Subjective Subjective Remarks States the pain is improved since yesterday. She continues to use a pain control pump she is working on moving her ankle and her toes Objective Vitals Vital Signs Date Time Temp Pulse Resp B/P Pulse Ox O2 Delivery O2 Flow Rate FiO2 08/18/16 04:00 97.9 89 16 144/62 93 08/18/16 03:38 18 08/18/16 00:00 97.3 86 17 145/74 95 08/17/16 20:38 19 08/17/16 20:00 97.4 87 16 140/66 94 08/17/16 16:00 97.7 80 18 150/64 94 08/17/16 14:00 18 08/17/16 12:00 96.6 78 18 150/65 95 08/17/16 09:27 99 21 08/17/16 08:00 96.5 77 18 143/71 96 I/O 08/17/16 08/17/16 08/17/16 08/18/16 08/18/16 08/18/16 07:00 15:00 23:00 07:00 15:00 23:00 Intake Total 720 ml 1200 ml 480 ml 480 ml Balance 720 ml 1200 ml 480 ml 480 ml Intake Oral 720 ml 1200 ml 480 ml 480 ml # Voids 2 2 1 3 # Bowel Movements 2 0 0 Result Diagram: 08/16/16 0530 Imaging Last 24 hours Impressions Foot X-Ray 08/11/166 Signed Impressions: Service Date/Time: Thursday, August 11, 2016 13:30 - CONCLUSION: Unremarkable examination of the right foot. Roderick Pedroza Jr., MD Chest CT 08/11/166 Signed Impressions: Service Date/Time: Thursday, August 11, 2016 13:04 - CONCLUSION: 1. CT imaging through the thorax is within normal limits. 2. 1.8 cm nonspecific low attenuation lesion in the upper aspect of the right lobe of the liver. Craig Zimmerman MD Abdomen/Pelvis CT 08/11/166 Signed Impressions: Service Date/Time: Thursday, August 11, 2016 13:04 - CONCLUSION: 1. 1.7 cm low attenuation lesion in the liver possibly representing a small hemangioma. It is too small to definitively characterize. 2. Sclerotic changes around the right sacroiliac joint suggesting a sacroiliitis. 3. CT imaging through the abdomen and pelvis is otherwise unremarkable. Craig Zimmerman MD Elbow X-Ray 08/11/16 1126 Signed Impressions: Service Date/Time: Thursday, August 11, 2016 12:01 - CONCLUSION: Negative examination Jose Francisco Guy MD Head CT 08/11/16 1115 Signed Impressions: Service Date/Time: Thursday, August 11, 2016 13:04 - CONCLUSION: Normal examination. Jose Francisco Guy MD Cervical Spine CT 08/11/16 1115 Signed Impressions: Service Date/Time: Thursday, August 11, 2016 13:04 - CONCLUSION: Normal examination. Jose Francisco Guy MD Wrist X-Ray 08/11/16 1102 Signed Impressions: Service Date/Time: Thursday, August 11, 2016 12:00 - CONCLUSION: Unremarkable examination of the left wrist. Jose Francisco Guy MD Wrist X-Ray 08/11/16 110 Signed Impressions: Service Date/Time: Thursday, August 11, 2016 11:57 - CONCLUSION: Unremarkable examination of the right wrist. Jose Francisco Guy MD Tibia/Fibula X-Ray 08/11/161101 Signed Impressions: Service Date/Time: Thursday, August 11, 2016 12:08 - CONCLUSION: Fracture of proximal tibia including the plateau and fibular head. Maulik iZmmerman MD FACR Femur X-Ray 08/11/161101 Signed Impressions: Service Date/Time: Thursday, August 11, 2016 13:34 - CONCLUSION: Intact femur . Large joint effusion suprapatellar bursa. Fractures of proximal tibia and fibula Jose Francisco Guy MD Objective Remarks No acute distress LLE ExFix bridging knee. 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
[2016-08-18] MEDS: FERROUS SULFATE 325 MG (65 MG ELEMENTAL IRON) TAB PO SCH ×2 (08:10→20:53)
[2016-08-18] MEDS: DOCUSATE SODIUM 50 MG/SENNA 8.6 MG TAB PO SCH ×2 (08:10→20:53)
[2016-08-18] MEDS: CYCLOBENZAPRINE HCL 10 MG TAB PO PRN ×3 (08:11→20:53)
[2016-08-18] MEDS: FAMOTIDINE 20 MG TAB PO SCH ×2 (08:11→20:53)
[2016-08-18] MEDS: SODIUM CHLORIDE 0.9% FLUSH 5 ML FLUSH IVF SCH (08:32)
[2016-08-18] MEDS: BACITRACIN TOP OINT 15 GM TUBE TOP SCH (12:39)
[2016-08-18] MEDS: ENOXAPARIN SODIUM 40 MG/0.4 ML SYRINGE SQ SCH (12:40)
[2016-08-18] MEDS: KETOROLAC TROMETHAMINE 30 MG/ML (IVP) VIAL IV PUSH SCH ×2 (14:05→20:53)
[2016-08-18] MEDS: MAGNESIUM HYDROXIDE SUSP 30 ML CUP PO SCH (20:57)
[2016-08-19 00:30] VITALS: BP 166/72; PULSE 86; RESP 18; TEMP 96; O2SAT 97
[2016-08-19] MEDS: CYCLOBENZAPRINE HCL 10 MG TAB PO PRN ×4 (02:18→20:42)
[2016-08-19] MEDS: ACETAMINOPHEN/HYDROcodone 325 MG/10 MG TAB PO PRN ×7 (02:18→20:42)
[2016-08-19] MEDS: SODIUM CHLORIDE 0.9% FLUSH 5 ML FLUSH IVF SCH ×3 (05:09→20:42)
[2016-08-19] MEDS: KETOROLAC TROMETHAMINE 30 MG/ML (IVP) VIAL IV PUSH SCH ×2 (05:11→20:40)
[2016-08-19] MEDS: PCA - TOTAL MG DILAUDID DELIVERED PER SHIFT SCH ×2 (06:00→22:00)
--- NOTE | 2016-08-19 06:40 | PD.ORT.PN ---
Subjective Subjective Remarks States the pain is improved since yesterday Objective Vitals Vital Signs Date Time Temp Pulse Resp B/P Pulse Ox O2 Delivery O2 Flow Rate FiO2 08/19/16 00:30 96.0 86 18 166/72 97 08/18/16 22:00 18 08/18/16 21:53 18 08/18/16 20:49 18 08/18/16 20:30 97.5 89 17 171/73 98 08/18/16 19:43 18 08/18/16 15:50 97.5 89 19 130/59 96 08/18/16 14:00 16 08/18/16 12:15 97.5 81 19 139/76 97 08/18/16 11:45 94 21 08/18/16 07:31 97.1 89 18 175/71 96 I/O 08/18/16 08/18/16 08/18/16 08/19/16 08/19/16 08/19/16 07:00 15:00 23:00 07:00 15:00 23:00 Intake Total 480 ml 1589 ml 720 ml Output Total 0 ml Balance 480 ml 1589 ml 720 ml Intake Oral 480 ml 960 ml 720 ml IV Total 629 ml Drainage Total 0 ml # Voids 3 6 2 # Bowel Movements 0 0 0 Result Diagram: 08/16/16 0530 Imaging Last 24 hours Impressions Foot X-Ray 08/11/161225 Signed Impressions: Service Date/Time: Thursday, August 11, 2016 13:30 - CONCLUSION: Unremarkable examination of the right foot. Roderick Pedroza Jr., MD Chest CT 08/11/166 Signed Impressions: Service Date/Time: Thursday, August 11, 2016 13:04 - CONCLUSION: 1. CT imaging through the thorax is within normal limits. 2. 1.8 cm nonspecific low attenuation lesion in the upper aspect of the right lobe of the liver. Craig Zimmerman MD Abdomen/Pelvis CT 08/11/166 Signed Impressions: Service Date/Time: Thursday, August 11, 2016 13:04 - CONCLUSION: 1. 1.7 cm low attenuation lesion in the liver possibly representing a small hemangioma. It is too small to definitively characterize. 2. Sclerotic changes around the right sacroiliac joint suggesting a sacroiliitis. 3. CT imaging through the abdomen and pelvis is otherwise unremarkable. Craig Zimmerman MD Elbow X-Ray 08/11/16 1126 Signed Impressions: Service Date/Time: Thursday, August 11, 2016 12:01 - CONCLUSION: Negative examination Jose Francisco Guy MD Head CT 08/11/16 1115 Signed Impressions: Service Date/Time: Thursday, August 11, 2016 13:04 - CONCLUSION: Normal examination. Jose Francisco Guy MD Cervical Spine CT 08/11/16 1115 Signed Impressions: Service Date/Time: Thursday, August 11, 2016 13:04 - CONCLUSION: Normal examination. Jose Francisco Guy MD Wrist X-Ray 08/11/16 1102 Signed Impressions: Service Date/Time: Thursday, August 11, 2016 12:00 - CONCLUSION: Unremarkable examination of the left wrist. Jose Francisco Guy MD Wrist X-Ray 08/11/16 1102 Signed Impressions: Service Date/Time: Thursday, August 11, 2016 11:57 - CONCLUSION: Unremarkable examination of the right wrist. Jose Francisco Guy MD Tibia/Fibula X-Ray 08/11/16 110 Signed Impressions: Service Date/Time: Thursday, August 11, 2016 12:08 - CONCLUSION: Fracture of proximal tibia including the plateau and fibular head. Maulik Zimmerman MD FACR Femur X-Ray 08/11/16 1102 Signed Impressions: Service Date/Time: Thursday, August 11, 2016 13:34 - CONCLUSION: Intact femur . Large joint effusion suprapatellar bursa. Fractures of proximal tibia and fibula Jose Francisco Guy MD Objective Remarks No acute distress LLE ExFix bridging knee. 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 Assessment & Plan Assessment and Plan 1) Left Tibial Plateau fx with compartment syndrome s/p fasciotomy and exfix - POD 7 Closure of fasciotomy incision POD 4 -NWB -elevate Daily dressing changes with bacitracin over all abrasions daily and dressed appropriately -VAC removed, daily dressing changes with Xeroform 4 x 4's and Laron wrap -po pain meds as needed, 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
[2016-08-19 08:00] VITALS: BP 170/81; PULSE 91; RESP 18; TEMP 96.2; O2SAT 96
[2016-08-19] MEDS: BACITRACIN TOP OINT 15 GM TUBE TOP SCH (09:00)
[2016-08-19] MEDS: FAMOTIDINE 20 MG TAB PO SCH ×2 (09:00→20:40)
[2016-08-19] MEDS: DOCUSATE SODIUM 50 MG/SENNA 8.6 MG TAB PO SCH ×2 (09:00→20:40)
[2016-08-19] MEDS: FERROUS SULFATE 325 MG (65 MG ELEMENTAL IRON) TAB PO SCH ×2 (09:00→20:40)
[2016-08-19] MEDS: ENOXAPARIN SODIUM 40 MG/0.4 ML SYRINGE SQ SCH (11:50)
[2016-08-19 12:00] VITALS: BP 157/74; PULSE 92; RESP 18; TEMP 98.5; O2SAT 97
[2016-08-19 16:00] VITALS: BP 146/77; PULSE 92; RESP 18; TEMP 97.2; O2SAT 95
[2016-08-19] MEDS ORDERED: KETOROLAC TROMETHAMINE 30 MG/ML (IVP) VIAL IM ONE (17:00)
[2016-08-19] MEDS ORDERED: KETOROLAC TROMETHAMINE 60 MG/2 ML (IM) VIAL IM ONE (17:15)
[2016-08-19 20:00] VITALS: BP 141/78; PULSE 86; RESP 20; TEMP 97.1; O2SAT 94
[2016-08-19] MEDS: MAGNESIUM HYDROXIDE SUSP 30 ML CUP PO SCH (20:42)
[2016-08-19] MEDS: diphenhydrAMINE HCL 25 MG CAP PO PRN (22:38)
[2016-08-20] MEDS: ACETAMINOPHEN/HYDROcodone 325 MG/10 MG TAB PO PRN ×9 (00:05→23:44)
[2016-08-20 00:38] VITALS: BP 132/61; PULSE 90; RESP 17; TEMP 97.9; O2SAT 94
[2016-08-20] MEDS: CYCLOBENZAPRINE HCL 10 MG TAB PO PRN ×4 (02:57→20:44)
[2016-08-20 04:30] VITALS: BP 172/73; PULSE 89; RESP 18; TEMP 97.4; O2SAT 94
[2016-08-20] MEDS: KETOROLAC TROMETHAMINE 30 MG/ML (IVP) VIAL IV PUSH SCH (05:25)
[2016-08-20] MEDS: PCA - TOTAL MG DILAUDID DELIVERED PER SHIFT SCH ×2 (06:00→19:54)
--- NOTE | 2016-08-20 07:18 | PD.ORT.PN ---
Subjective Subjective Remarks POD 8 s/p fasciotomy and Exfix application to left tibial plateau fx POD 5 s/p fasciotomy closure left leg doing well. pain controlled. Objective Vitals Vital Signs Date Time Temp Pulse Resp B/P Pulse Ox O2 Delivery O2 Flow Rate FiO2 08/20/16 06:00 20 08/20/16 04:30 97.4 89 18 172/73 94 08/20/16 00:38 97.9 90 17 132/61 94 08/19/16 22:00 19 08/19/16 21:00 Room Air 08/19/16 20:00 97.1 86 20 141/78 94 08/19/16 16:00 97.2 92 18 146/77 95 08/19/16 12:00 98.5 92 18 157/74 97 08/19/16 08:00 96.2 91 18 170/81 96 I/O 08/19/16 08/19/16 08/19/16 08/20/16 08/20/16 08/20/16 07:00 15:00 23:00 07:00 15:00 23:00 Intake Total 603 ml 360 ml 720 ml 480 ml Balance 603 ml 360 ml 720 ml 480 ml Intake Oral 480 ml 360 ml 720 ml 480 ml IV Total 123 ml # Voids 1 4 3 2 # Bowel Movements 0 0 0 Result Diagram: 08/16/16 0530 Imaging Last 24 hours Impressions Foot X-Ray 08/11/161225 Signed Impressions: Service Date/Time: Thursday, August 11, 2016 13:30 - CONCLUSION: Unremarkable examination of the right foot. Roderick Pedroza Jr., MD Chest CT 08/11/166 Signed Impressions: Service Date/Time: Thursday, August 11, 2016 13:04 - CONCLUSION: 1. CT imaging through the thorax is within normal limits. 2. 1.8 cm nonspecific low attenuation lesion in the upper aspect of the right lobe of the liver. Craig Zimmerman MD Abdomen/Pelvis CT 08/11/166 Signed Impressions: Service Date/Time: Thursday, August 11, 2016 13:04 - CONCLUSION: 1. 1.7 cm low attenuation lesion in the liver possibly representing a small hemangioma. It is too small to definitively characterize. 2. Sclerotic changes around the right sacroiliac joint suggesting a sacroiliitis. 3. CT imaging through the abdomen and pelvis is otherwise unremarkable. Craig Zimmerman MD Elbow X-Ray 08/11/16 1126 Signed Impressions: Service Date/Time: Thursday, August 11, 2016 12:01 - CONCLUSION: Negative examination Jose Francisco Guy MD Head CT 08/11/16 1115 Signed Impressions: Service Date/Time: Thursday, August 11, 2016 13:04 - CONCLUSION: Normal examination. Jose Francisco Guy MD Cervical Spine CT 08/11/16 1115 Signed Impressions: Service Date/Time: Thursday, August 11, 2016 13:04 - CONCLUSION: Normal examination. Jose Francisco Guy MD Wrist X-Ray 08/11/16 110 Signed Impressions: Service Date/Time: Thursday, August 11, 2016 12:00 - CONCLUSION: Unremarkable examination of the left wrist. Jose Francisco Guy MD Wrist X-Ray 08/11/16 1102 Signed Impressions: Service Date/Time: Thursday, August 11, 2016 11:57 - CONCLUSION: Unremarkable examination of the right wrist. Jose Francisco Guy MD Tibia/Fibula X-Ray 08/11/161101 Signed Impressions: Service Date/Time: Thursday, August 11, 2016 12:08 - CONCLUSION: Fracture of proximal tibia including the plateau and fibular head. Maulik Zimmerman MD FACR Femur X-Ray 08/11/161101 Signed Impressions: Service Date/Time: Thursday, August 11, 2016 13:34 - CONCLUSION: Intact femur . Large joint effusion suprapatellar bursa. Fractures of proximal tibia and fibula Jose Francisco Guy MD Objective Remarks No acute distress LLE ExFix bridging knee. swelling improving. 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 Assessment & Plan Assessment and Plan 1) Left Tibial Plateau fx with compartment syndrome s/p fasciotomy and exfix - POD 8 Closure of fasciotomy incision POD 5 -NWB -elevate Daily dressing changes with bacitracin over all abrasions daily and dressed appropriately -VAC removed, daily dressing changes with Xeroform 4 x 4's and Laron wrap -po pain meds as needed, DC CARE ADVOCATE today -plan for open reduction internal fixation of left tibia plateau possibly Thursday if swelling continues to improve 2) Bialteral Wrist sprains -monitor -WBAT Toradol 30 mg every 8 hours 3 doses Lovenox Incentive spirometry Johnathon Swan Aug 20, 2016 07:18
[2016-08-20 08:00] VITALS: BP 157/70; PULSE 85; RESP 18; TEMP 97.8; O2SAT 95
[2016-08-20] MEDS: FAMOTIDINE 20 MG TAB PO SCH ×2 (08:45→20:44)
[2016-08-20] MEDS: DOCUSATE SODIUM 50 MG/SENNA 8.6 MG TAB PO SCH ×2 (08:45→20:44)
[2016-08-20] MEDS: FERROUS SULFATE 325 MG (65 MG ELEMENTAL IRON) TAB PO SCH ×2 (08:45→20:44)
[2016-08-20] MEDS: ENOXAPARIN SODIUM 40 MG/0.4 ML SYRINGE SQ SCH (11:50)
[2016-08-20 12:00] VITALS: BP 184/110; PULSE 88; RESP 18; TEMP 96.9; O2SAT 99
[2016-08-20 15:40] VITALS: BP 167/72; PULSE 86; RESP 19; TEMP 98.3; O2SAT 97
[2016-08-20 19:14] VITALS: BP 142/61; PULSE 98; RESP 19; TEMP 97.8; O2SAT 97
[2016-08-20] MEDS: SODIUM CHLORIDE 0.9% FLUSH 5 ML FLUSH IVF SCH (19:53)
[2016-08-20] MEDS: LACTATED RINGER'S 1000 ML INJ 1,000 ML IV SCH (19:53)
[2016-08-20] MEDS: MAGNESIUM HYDROXIDE SUSP 30 ML CUP PO SCH (20:44)
[2016-08-20] MEDS: BISACODYL EC 5 MG TABEC PO PRN (20:44)
[2016-08-21] VITALS: BP 135/69; PULSE 96; RESP 16; TEMP 98.5; O2SAT 94
[2016-08-21] MEDS: ACETAMINOPHEN/HYDROcodone 325 MG/10 MG TAB PO PRN ×7 (02:45→23:39)
[2016-08-21] MEDS: CYCLOBENZAPRINE HCL 10 MG TAB PO PRN ×3 (02:45→14:43)
--- NOTE | 2016-08-21 07:24 | PD.ORT.PN ---
Subjective Subjective Remarks POD 9 s/p fasciotomy and Exfix application to left tibial plateau fx POD 6 s/p fasciotomy closure left leg doing well. pain controlled. reports redness and drainage out of top pin site Objective Vitals Vital Signs Date Time Temp Pulse Resp B/P Pulse Ox O2 Delivery O2 Flow Rate FiO2 08/21/16 06:37 18 08/21/16 00:00 98.5 96 16 135/69 94 08/20/16 19:14 97.8 98 19 142/61 97 08/20/16 15:40 98.3 86 19 167/72 97 08/20/16 12:00 96.9 88 18 184/110 99 08/20/16 08:00 97.8 85 18 157/70 95 I/O 08/20/16 08/20/16 08/20/16 08/21/16 08/21/16 08/21/16 07:00 15:00 23:00 07:00 15:00 23:00 Intake Total 480 ml 1250 ml 240 ml 240 ml Balance 480 ml 1250 ml 240 ml 240 ml Intake Oral 480 ml 1250 ml 240 ml 240 ml # Voids 2 3 1 2 # Bowel Movements 0 0 0 0 Imaging Last 24 hours Impressions Foot X-Ray 08/11/166 Signed Impressions: Service Date/Time: Thursday, August 11, 2016 13:30 - CONCLUSION: Unremarkable examination of the right foot. Roderick Pedroza Jr., MD Chest CT 08/11/166 Signed Impressions: Service Date/Time: Thursday, August 11, 2016 13:04 - CONCLUSION: 1. CT imaging through the thorax is within normal limits. 2. 1.8 cm nonspecific low attenuation lesion in the upper aspect of the right lobe of the liver. Craig Zimmerman MD Abdomen/Pelvis CT 08/11/16 1226 Signed Impressions: Service Date/Time: Thursday, August 11, 2016 13:04 - CONCLUSION: 1. 1.7 cm low attenuation lesion in the liver possibly representing a small hemangioma. It is too small to definitively characterize. 2. Sclerotic changes around the right sacroiliac joint suggesting a sacroiliitis. 3. CT imaging through the abdomen and pelvis is otherwise unremarkable. Craig Zimmerman MD Elbow X-Ray 08/11/16 1126 Signed Impressions: Service Date/Time: Thursday, August 11, 2016 12:01 - CONCLUSION: Negative examination Jose Francisco Guy MD Head CT 08/11/16 1115 Signed Impressions: Service Date/Time: Thursday, August 11, 2016 13:04 - CONCLUSION: Normal examination. Jose Francisco Guy MD Cervical Spine CT 08/11/16 1115 Signed Impressions: Service Date/Time: Thursday, August 11, 2016 13:04 - CONCLUSION: Normal examination. Jose Francisco Guy MD Wrist X-Ray 08/11/16 1102 Signed Impressions: Service Date/Time: Thursday, August 11, 2016 12:00 - CONCLUSION: Unremarkable examination of the left wrist. Jose Francisco Guy MD Wrist X-Ray 08/11/16 1102 Signed Impressions: Service Date/Time: Thursday, August 11, 2016 11:57 - CONCLUSION: Unremarkable examination of the right wrist. Jose Francisco Guy MD Tibia/Fibula X-Ray 08/11/16 1102 Signed Impressions: Service Date/Time: Thursday, August 11, 2016 12:08 - CONCLUSION: Fracture of proximal tibia including the plateau and fibular head. Maulik Zimmerman MD FACR Femur X-Ray 08/11/16 1102 Signed Impressions: Service Date/Time: Thursday, August 11, 2016 13:34 - CONCLUSION: Intact femur . Large joint effusion suprapatellar bursa. Fractures of proximal tibia and fibula Jose Francisco Guy MD Objective Remarks No acute distress LLE ExFix bridging knee. swelling improving. NVI distally with good dorsiflexion. proximal pin site erythematous with purulent drainage. 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 ok to transition to [place] -po pain meds as needed 2) Bialteral Wrist sprains -monitor -WBAT -plan for open reduction internal fixation of left tibia plateau tomorrow -NPO after MN -sign consents -begin keflex for proximal pin site infection -hold Johnathon Kwan Aug 21, 2016 07:23
[2016-08-21 08:00] VITALS: BP 144/84; PULSE 95; RESP 18; TEMP 97.1; O2SAT 98
[2016-08-21] MEDS: FAMOTIDINE 20 MG TAB PO SCH ×2 (08:23→19:30)
[2016-08-21] MEDS: CEPHALEXIN MONOHYDRATE 500 MG CAP PO SCH ×3 (08:23→19:29)
[2016-08-21] MEDS: FERROUS SULFATE 325 MG (65 MG ELEMENTAL IRON) TAB PO SCH ×2 (08:23→19:29)
[2016-08-21] MEDS: DOCUSATE SODIUM 50 MG/SENNA 8.6 MG TAB PO SCH ×2 (08:23→19:30)
[2016-08-21] MEDS: BISACODYL EC 5 MG TABEC PO PRN (08:29)
[2016-08-21] MEDS: BACITRACIN TOP OINT 15 GM TUBE TOP SCH (09:00)
[2016-08-21] MEDS: SODIUM CHLORIDE 0.9% FLUSH 5 ML FLUSH IVF SCH ×2 (09:00→19:30)
[2016-08-21 09:41] LABS: HEMATOCRIT 31.7 % (35.0-46.0); MEAN CELL VOLUME 86.6 FL (80.0-100.0); MEAN CORPUSCULAR HEMOGLOBIN 29.3 PG (27.0-34.0); MEAN CORPUSCULAR HGB CONC 33.8 % (32.0-36.0); PLATELET COUNT 322 TH/MM3 (150-450); RED BLOOD COUNT 3.66 MIL/MM3 (4.00-5.30); RED CELL DISTRIBUTION WIDTH 14.3 % (11.6-17.2); REVIEW FLAG FINAL; WHITE BLOOD COUNT 7.9 TH/MM3 (4.0-11.0)
[2016-08-21 12:00] VITALS: BP 169/69; PULSE 86; RESP 18; TEMP 97.6; O2SAT 97
[2016-08-21] MEDS: LACTATED RINGER'S 1000 ML INJ 1,000 ML IV SCH (15:00)
[2016-08-21 16:00] VITALS: BP 139/80; PULSE 96; RESP 18; TEMP 96.9; O2SAT 95
[2016-08-21] MEDS: BISACODYL 10 MG SUPP RECTAL PRN (17:30)
[2016-08-21] MEDS: MAGNESIUM HYDROXIDE SUSP 30 ML CUP PO SCH (19:30)
[2016-08-21 20:00] VITALS: BP 148/86; PULSE 103; RESP 26; TEMP 98.7; O2SAT 96
[2016-08-22] VITALS: BP 156/77; PULSE 110; RESP 26; TEMP 98.9; O2SAT 96
[2016-08-22] MEDS: CEPHALEXIN MONOHYDRATE 500 MG CAP PO SCH (02:41)
[2016-08-22] MEDS: ACETAMINOPHEN/HYDROcodone 325 MG/10 MG TAB PO PRN ×6 (02:42→23:02)
[2016-08-22] MEDS: CYCLOBENZAPRINE HCL 10 MG TAB PO PRN ×4 (02:45→23:01)
[2016-08-22 04:00] VITALS: BP 177/93; PULSE 98; RESP 30; TEMP 98.6; O2SAT 96
[2016-08-22] MEDS: LACTATED RINGER'S 1000 ML INJ 1,000 ML IV SCH ×2 (06:22→18:52)
--- NOTE | 2016-08-22 06:30 | PD.ORT.PN ---
Subjective Subjective Remarks POD 10 s/p fasciotomy and Exfix application to left tibial plateau fx POD 7 s/p fasciotomy closure left leg doing well. pain controlled. reports redness and drainage out of top pin site Objective Vitals Vital Signs Date Time Temp Pulse Resp B/P Pulse Ox O2 Delivery O2 Flow Rate FiO2 08/22/16 04:00 98.6 98 30 177/93 96 08/22/16 00:00 98.9 110 26 156/77 96 08/21/16 20:00 98.7 103 26 148/86 96 08/21/16 16:00 96.9 96 18 139/80 95 08/21/16 12:00 97.6 86 18 169/69 97 08/21/16 08:00 97.1 95 18 144/84 98 08/21/16 06:37 18 I/O 08/21/16 08/21/16 08/21/16 08/22/16 08/22/16 08/22/16 07:00 15:00 23:00 07:00 15:00 23:00 Intake Total 240 ml 1260 ml 360 ml Output Total 2 ml Balance 240 ml 1260 ml 358 ml Intake Oral 240 ml 1260 ml 360 ml Stool Total 2 ml # Voids 2 4 3 # Bowel Movements 0 0 Result Diagram: 08/21/16 0857 Imaging Last 24 hours Impressions Foot X-Ray 08/11/161225 Signed Impressions: Service Date/Time: Thursday, August 11, 2016 13:30 - CONCLUSION: Unremarkable examination of the right foot. Roderick Pedroza Jr., MD Chest CT 08/11/161225 Signed Impressions: Service Date/Time: Thursday, August 11, 2016 13:04 - CONCLUSION: 1. CT imaging through the thorax is within normal limits. 2. 1.8 cm nonspecific low attenuation lesion in the upper aspect of the right lobe of the liver. Craig Zimmerman MD Abdomen/Pelvis CT 08/11/166 Signed Impressions: Service Date/Time: Thursday, August 11, 2016 13:04 - CONCLUSION: 1. 1.7 cm low attenuation lesion in the liver possibly representing a small hemangioma. It is too small to definitively characterize. 2. Sclerotic changes around the right sacroiliac joint suggesting a sacroiliitis. 3. CT imaging through the abdomen and pelvis is otherwise unremarkable. Craig Zimmerman MD Elbow X-Ray 08/11/16 1126 Signed Impressions: Service Date/Time: Thursday, August 11, 2016 12:01 - CONCLUSION: Negative examination Jose Francisco Guy MD Head CT 08/11/16 1115 Signed Impressions: Service Date/Time: Thursday, August 11, 2016 13:04 - CONCLUSION: Normal examination. Jose Francisco Guy MD Cervical Spine CT 08/11/16 1115 Signed Impressions: Service Date/Time: Thursday, August 11, 2016 13:04 - CONCLUSION: Normal examination. Jose Francisco Guy MD Wrist X-Ray 08/11/16 110 Signed Impressions: Service Date/Time: Thursday, August 11, 2016 12:00 - CONCLUSION: Unremarkable examination of the left wrist. Jose Francisco Guy MD Wrist X-Ray 08/11/16 1102 Signed Impressions: Service Date/Time: Thursday, August 11, 2016 11:57 - CONCLUSION: Unremarkable examination of the right wrist. Jose Francisco Guy MD Tibia/Fibula X-Ray 08/11/16 110 Signed Impressions: Service Date/Time: Thursday, August 11, 2016 12:08 - CONCLUSION: Fracture of proximal tibia including the plateau and fibular head. Maulik Zimmerman MD FACR Femur X-Ray 08/11/16 110 Signed Impressions: Service Date/Time: Thursday, August 11, 2016 13:34 - CONCLUSION: Intact femur . Large joint effusion suprapatellar bursa. Fractures of proximal tibia and fibula Jose Francisco Guy MD Objective Remarks No acute distress LLE ExFix bridging knee. swelling improving. NVI distally with good dorsiflexion. proximal pin site erythematous with purulent drainage. 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
[2016-08-22 08:00] VITALS: BP 148/72; PULSE 91; RESP 18; TEMP 98.2; O2SAT 95
[2016-08-22] MEDS: FERROUS SULFATE 325 MG (65 MG ELEMENTAL IRON) TAB PO SCH ×2 (08:38→20:04)
[2016-08-22] MEDS: DOCUSATE SODIUM 50 MG/SENNA 8.6 MG TAB PO SCH ×2 (08:39→20:04)
[2016-08-22] MEDS: FAMOTIDINE 20 MG TAB PO SCH ×2 (08:39→20:04)
[2016-08-22] MEDS: SODIUM CHLORIDE 0.9% FLUSH 5 ML FLUSH IVF SCH ×3 (09:00→20:05)
[2016-08-22] MEDS ORDERED: FAMOTIDINE 20 MG/2 ML VIAL ONE (10:31)
[2016-08-22] MEDS ORDERED: HYDROmorphone HCL PF 2 MG/ML VIAL ONE ×2 (10:31→12:25)
[2016-08-22] MEDS ORDERED: GENTAMICIN SULFATE 80 MG/2 ML VIAL ONE (10:44)
[2016-08-22] MEDS ORDERED: ceFAZolin INJ 1,000 MG VIAL IV ONE (11:05)
[2016-08-22] MEDS ORDERED: VANCOMYCIN HCL 1000 MG VIAL OTHER ONE (11:10)
[2016-08-22] MEDS ORDERED: GENTAMICIN SULFATE 80 MG/2 ML VIAL IRRIGATION ONE (11:31)
[2016-08-22] MEDS ORDERED: ONDANSETRON HCL 4 MG/2 ML VIAL IV PUSH ONE (12:00)
[2016-08-22] MEDS ORDERED: NEOSTIGMINE 3 MG/3 ML SYR IV ONE (12:00)
[2016-08-22] MEDS ORDERED: PROPOFOL 200 MG/20 ML AMP IV ONE (12:00)
[2016-08-22] MEDS ORDERED: ACETAMINOPHEN/HYDROcodone 325 MG/10 MG TAB PO PRN (13:15)
[2016-08-22] MEDS ORDERED: SODIUM CHLORIDE 0.9% FLUSH 5 ML FLUSH IVF PRN (13:15)
[2016-08-22] MEDS ORDERED: MISCELLANEOUS PHARMACY INFORMATION XX ONE (13:15)
[2016-08-22] MEDS ORDERED: MISCELLANEOUS NURSING INFORMATION XX PRN (13:15)
[2016-08-22] MEDS ORDERED: Post-op Orders (for Pharmacy) MISC XX ONE (13:15)
[2016-08-22] MEDS ORDERED: MORPHINE SULFATE 4 MG/ML INJ IV PUSH PRN (13:15)
[2016-08-22] MEDS ORDERED: MORPHINE SULFATE 30 MG/30 ML PCA IV SCH (13:15)
[2016-08-22] MEDS ORDERED: fentaNYL CITRATE 250 MCG/5 ML AMP ONE (13:16)
[2016-08-22] MEDS ORDERED: MIDAZOLAM HCL 2 MG/2 ML VIAL ONE (13:16)
--- NOTE | 2016-08-22 13:21 | PD.OP ---
cc: Parish Silva MD Operative Report Date of Surgery: Aug 22, 2016 Preoperative Diagnosis: Comminuted bicondylar left tibial plateau fracture Postoperative Diagnosis: Same Procedure: Removal of external fixation, open reduction internal fixation comminuted left bicondylar tibial plateau fracture Anesthesia: Gen. Surgeon: Parish Silva Print Buyer(s): PRAMOD Lozano PA-C The surgical procedure was assisted by my physician dietitian assistant. My P.A. presence was necessary throughout this case for the manipulation and positioning of the surgical extremity. My P.A. was assisting me throughout the duration of this procedure. The skill set of a physician dietitian assistant was medically necessary to complete this procedure. During the surgical case the cardiovascular surgical tech was working at the back table and the physician dietitian assistant was directly assisting me. Operation and Findings: This patient was seen and evaluated preoperatively. Patient sustained an injury resulting a bicondylar right tibial plateau fracture. Informed consent was obtained preoperatively after detailed discussion of the risks and benefits of surgery. Risk of surgery including bleeding, infection, nonunion, painful hardware, stiffness, loss of motion, arthritis, need for knee replacement, as well as medical complications including blood clots, stroke, heart attack, and were discussed. I also discussed the possibility of using allograft bone graft . Preoperatively the operative site was marked. Patient was brought to the operating room and placed on the operating room table. Intravenous sedation and general endotracheal anesthesia were administered. IV antibiotics were given and a time out procedure was preformed. Procedure began with removal of the external fixator. Clamps were loosened. Bars and clamps were now removed. The pins were left in place. Next,the operative leg was prepped with alcohol followed by Hibiclens and draped in the usual sterile fashion. Next a 5-inch curvilinear incision over the anterolateral knee. Subcutaneous tissue was treated with Bovie. Iliotibial band was split in line with fibers. A sub-meniscal arthrotomy was created and the lateral articular surface was visualized. There was significant comminution and depression of the articular surface. A window was made in the metaphyseal region and bone tamps used to elevate the articular surface. The articular surface was in multiple fragments. There was significant depression of the articular surface. Articular surface reduced into appropriate alignment. K-wires were used for provisional fixation. At this point 45 cc cancellous bone graft was packed under the articular surface using a bone tamp. The cortical fragments were now reduced. The tibial shaft was now reduced to the proximal tibia. Additional K wires were used to hold provisional fixation. Fluoroscopy revealed excellent alignment of fracture. A Synthes proximal tibial plate was selected. The plate was provisionally held with K-wires. 3.5 cortical screws were used compress plate to bone distally, and a periarticular clamp was used to compress the medial and lateral tibial plateau fracture fragments together. Multiple locking screws were now placed proximally. Additional screws were placed in the shaft. K-wires were removed. Final fluoroscopy showed excellent alignment of fracture with well-placed hardware. The incision was thoroughly irrigated. Incisions were thoroughly irrigated. Attention was now turned to closure. Fascia and iliotibial band were closed with #1 Vicryl,. Subcutaneous tissues closed with 3-0 Vicryl and skin was closed with doni. Sterile dressings were applied. The patient was transferred to recovery in stable condition. Parish Silva MD Aug 22, 2016 13:21
[2016-08-22] MEDS ORDERED: BACITRACIN TOP OINT 15 GM TUBE TOP ONE (13:30)
[2016-08-22] MEDS ORDERED: DO NOT ADM ANY ANTICOAGULANT DRUGS XX PRN (13:38)
[2016-08-22] MEDS ORDERED: *HYDROmorphone PF 1 MG VIAL PERIprocedural Use ONLY ONE ×2 (13:57→14:27)
[2016-08-22] MEDS: PCA - TOTAL MG MORPHINE DELIVERED PER SHIFT SCH ×2 (14:00→22:00)
[2016-08-22] MEDS: KETOROLAC TROMETHAMINE 30 MG/ML (IVP) VIAL IVP SCH ×2 (14:02→21:15)
--- NOTE | 2016-08-22 14:06 | PD.ORT.PN ---
Subjective Subjective Remarks POD 0 removal of exfix with ORIF left tibial plateau POD 7 s/p fasciotomy closure left leg Objective Vitals Vital Signs Date Time Temp Pulse Resp B/P Pulse Ox O2 Delivery O2 Flow Rate FiO2 08/22/16 08:00 98.2 91 18 148/72 95 08/22/16 04:00 98.6 98 30 177/93 96 08/22/16 00:00 98.9 110 26 156/77 96 08/21/16 20:00 98.7 103 26 148/86 96 08/21/16 16:00 96.9 96 18 139/80 95 I/O 08/21/16 08/21/16 08/21/16 08/22/16 08/22/16 08/22/16 07:00 15:00 23:00 07:00 15:00 23:00 Intake Total 240 ml 1260 ml 360 ml Output Total 2 ml Balance 240 ml 1260 ml 358 ml Intake Oral 240 ml 1260 ml 360 ml Stool Total 2 ml # Voids 2 4 3 # Bowel Movements 0 0 Result Diagram: 08/21/16 0857 Imaging Last 24 hours Impressions Foot X-Ray 08/11/166 Signed Impressions: Service Date/Time: Thursday, August 11, 2016 13:30 - CONCLUSION: Unremarkable examination of the right foot. Roderick Pedroza Jr., MD Chest CT 08/11/166 Signed Impressions: Service Date/Time: Thursday, August 11, 2016 13:04 - CONCLUSION: 1. CT imaging through the thorax is within normal limits. 2. 1.8 cm nonspecific low attenuation lesion in the upper aspect of the right lobe of the liver. Craig Zimmerman MD Abdomen/Pelvis CT 08/11/16 1226 Signed Impressions: Service Date/Time: Thursday, August 11, 2016 13:04 - CONCLUSION: 1. 1.7 cm low attenuation lesion in the liver possibly representing a small hemangioma. It is too small to definitively characterize. 2. Sclerotic changes around the right sacroiliac joint suggesting a sacroiliitis. 3. CT imaging through the abdomen and pelvis is otherwise unremarkable. Craig Zimmerman MD Elbow X-Ray 08/11/16 1126 Signed Impressions: Service Date/Time: Thursday, August 11, 2016 12:01 - CONCLUSION: Negative examination Jose Francisco Guy MD Head CT 08/11/16 1115 Signed Impressions: Service Date/Time: Thursday, August 11, 2016 13:04 - CONCLUSION: Normal examination. Jose Francisco Guy MD Cervical Spine CT 08/11/16 1115 Signed Impressions: Service Date/Time: Thursday, August 11, 2016 13:04 - CONCLUSION: Normal examination. Jose Francisco Guy MD Wrist X-Ray 08/11/16 1102 Signed Impressions: Service Date/Time: Thursday, August 11, 2016 12:00 - CONCLUSION: Unremarkable examination of the left wrist. Jose Francisco Guy MD Wrist X-Ray 08/11/16 110 Signed Impressions: Service Date/Time: Thursday, August 11, 2016 11:57 - CONCLUSION: Unremarkable examination of the right wrist. Jose Francisco Guy MD Tibia/Fibula X-Ray 08/11/16 110 Signed Impressions: Service Date/Time: Thursday, August 11, 2016 12:08 - CONCLUSION: Fracture of proximal tibia including the plateau and fibular head. Maulik Zimmerman MD FACR Femur X-Ray 08/11/161101 Signed Impressions: Service Date/Time: Thursday, August 11, 2016 13:34 - CONCLUSION: Intact femur . Large joint effusion suprapatellar bursa. Fractures of proximal tibia and fibula Jose Francisco Guy MD Objective Remarks No acute distress LLE: dressing clean and dry. intact. NVI. +knee brace Assessment & Plan Assessment and Plan 1) Left Tibial Plateau fx s/p ORIF - POD 0 2) Closure of fasciotomy incision POD 7 -NWB LLE -daily dressing changes POD 2 with xeroform/4x4/ANNALEE wrap -knee brace at all times except for PT -PROM 0-90 -no active leg lifts or quad sets -CM for rehab placement -DVT prophylaxis - Lovenox 30mg subQ plan for DC to rehab thursday -f/u with Edith or [facility] in 2 weeks Johnathon Swan Aug 22, 2016 14:06
[2016-08-22] MEDS ORDERED: HYDR-3366 PO (14:08)
[2016-08-22] MEDS ORDERED: WHEEMIS3 (14:08)
[2016-08-22] MEDS ORDERED: XARE10TA PO (14:08)
[2016-08-22] MEDS ORDERED: WALKER/ADULT/FO1 MIS (14:08)
--- NOTE | 2016-08-22 14:15 | RADRPT ---
EXAM DATE/TIME: 08/22/2016 12:55 [facility] COMPARISON: KNEE LEFT LTD (1 OR 2VWS), August 12, 2016, 8:56. INDICATIONS : ORIF left tibial plateau. MEDICAL HISTORY : None. SURGICAL HISTORY : None. ENCOUNTER: Subsequent ACUITY: 1 week PAIN SCORE: Non-responsive. LOCATION: Left tibial plateau. FINDINGS: 4 intraoperative spot images of the left knee. Proximal tibia and fibula fractures are seen. Lateral internal fixation plate and multiple transfixing screws in the proximal tibia. CONCLUSION: Intraoperative spot images of the left knee showing internal fixation hardware in the proximal tibia. Marcos Marquez MD on August 22, 2016 at 14:11 Board Certified Radiologist. This report was verified electronically.
[2016-08-22] MEDS: HYDROmorphone HCL PCA 6 MG/30 ML IV SCH ×2 (15:07→21:25)
[2016-08-22] MEDS: ceFAZolin 2 GM PREMIX 50 ML IV SCH (17:11)
[2016-08-22] MEDS: ONDANSETRON HCL 4 MG/2 ML VIAL IV PRN ×2 (17:18→23:16)
[2016-08-22] MEDS: CALCIUM/VITAMIN D 250 MG/125 U TAB PO SCH (17:19)
[2016-08-22] MEDS: MAGNESIUM HYDROXIDE SUSP 30 ML CUP PO SCH (20:04)
[2016-08-22 20:15] VITALS: BP 151/79; PULSE 102; RESP 22; TEMP 97.3; O2SAT 96
[2016-08-22] MEDS: PCA - TOTAL MG DILAUDID DELIVERED PER SHIFT SCH (21:27)
[2016-08-22] MEDS: BACITRACIN TOP OINT 15 GM TUBE TOP SCH (22:07)
[2016-08-22] MEDS: VANCOMYCIN INJ 1,000 MG in SODIUM CHLOR 0.9% 250 ML INJ 250 ML IV SCH (23:02)
[2016-08-23] VITALS (7 sets, daily range): BP systolic 131–166; BP diastolic 65–80; PULSE 100–112; RESP 16–20; TEMP 97.7–100.4; O2SAT 93–99
[2016-08-23] MEDS: LACTATED RINGER'S 1000 ML INJ 1,000 ML IV SCH ×4 (01:41→16:55)
[2016-08-23] MEDS: ceFAZolin 2 GM PREMIX 50 ML IV SCH ×3 (02:08→16:54)
[2016-08-23] MEDS: ACETAMINOPHEN/HYDROcodone 325 MG/10 MG TAB PO PRN ×8 (02:08→22:53)
[2016-08-23] MEDS: CYCLOBENZAPRINE HCL 10 MG TAB PO PRN ×4 (04:58→22:53)
[2016-08-23] MEDS: ONDANSETRON HCL 4 MG/2 ML VIAL IV PRN ×3 (04:58→16:53)
[2016-08-23] MEDS: HYDROmorphone HCL PCA 6 MG/30 ML IV SCH ×3 (05:07→23:38)
[2016-08-23] MEDS: KETOROLAC TROMETHAMINE 30 MG/ML (IVP) VIAL IVP SCH ×2 (05:50→13:38)
[2016-08-23] MEDS: PCA - TOTAL MG DILAUDID DELIVERED PER SHIFT SCH ×3 (05:57→22:18)
[2016-08-23] MEDS: PCA - TOTAL MG MORPHINE DELIVERED PER SHIFT SCH ×3 (06:00→20:00)
[2016-08-23 06:08] LABS: HEMATOCRIT 26.9 % (35.0-46.0); REVIEW FLAG FINAL
[2016-08-23] MEDS: SODIUM CHLORIDE 0.9% FLUSH 5 ML FLUSH IVF SCH ×4 (07:45→19:59)
--- NOTE | 2016-08-23 08:02 | PD.ORT.PN ---
Subjective Subjective Remarks pt complains of pain involving left lower extremity Objective Vitals Vital Signs Date Time Temp Pulse Resp B/P Pulse Ox O2 Delivery O2 Flow Rate FiO2 08/23/16 06:25 100.4 08/23/16 06:00 19 08/23/16 05:57 21 08/23/16 05:07 21 08/23/16 04:30 99.4 110 20 139/74 95 08/23/16 00:35 98.2 107 16 165/65 97 08/22/16 21:27 19 08/22/16 21:25 18 08/22/16 20:15 97.3 102 22 151/79 96 08/22/16 15:37 14 08/22/16 15:07 15 08/22/16 14:30 108 16 154/87 95 Nasal Cannula 2 08/22/16 14:15 104 16 158/77 96 Nasal Cannula 3 08/22/16 14:00 107 16 165/83 94 Nasal Cannula 3 08/22/16 13:42 98.7 105 16 144/72 94 Simple Mask 6 08/22/16 08:00 98.2 91 18 148/72 95 I/O 08/22/16 08/22/16 08/22/16 08/23/16 08/23/16 08/23/16 07:00 15:00 23:00 07:00 15:00 23:00 Intake Total 900 ml 720 ml 680 ml Output Total 225 ml Balance 675 ml 720 ml 680 ml Intake Oral 720 ml 680 ml IV Total 100 ml Other 800 ml Output Urine Total 175 ml Estimated Blood Loss 50 ml # Voids 3 1 # Bowel Movements 0 Result Diagram: 08/23/16 0558 Imaging Last 24 hours Impressions Foot X-Ray 08/11/161225 Signed Impressions: Service Date/Time: Thursday, August 11, 2016 13:30 - CONCLUSION: Unremarkable examination of the right foot. Roderick Pedroza Jr., MD Chest CT 08/11/161225 Signed Impressions: Service Date/Time: Thursday, August 11, 2016 13:04 - CONCLUSION: 1. CT imaging through the thorax is within normal limits. 2. 1.8 cm nonspecific low attenuation lesion in the upper aspect of the right lobe of the liver. Craig Zimmerman MD Abdomen/Pelvis CT 08/11/161225 Signed Impressions: Service Date/Time: Thursday, August 11, 2016 13:04 - CONCLUSION: 1. 1.7 cm low attenuation lesion in the liver possibly representing a small hemangioma. It is too small to definitively characterize. 2. Sclerotic changes around the right sacroiliac joint suggesting a sacroiliitis. 3. CT imaging through the abdomen and pelvis is otherwise unremarkable. Craig Zimmerman MD Elbow X-Ray 08/11/16 1126 Signed Impressions: Service Date/Time: Thursday, August 11, 2016 12:01 - CONCLUSION: Negative examination Jose Francisco Guy MD Head CT 08/11/16 1115 Signed Impressions: Service Date/Time: Thursday, August 11, 2016 13:04 - CONCLUSION: Normal examination. Jose Francisco Guy MD Cervical Spine CT 08/11/16 1115 Signed Impressions: Service Date/Time: Thursday, August 11, 2016 13:04 - CONCLUSION: Normal examination. Jose Francisco Guy MD Wrist X-Ray 08/11/16 1102 Signed Impressions: Service Date/Time: Thursday, August 11, 2016 12:00 - CONCLUSION: Unremarkable examination of the left wrist. Jose Francisco Guy MD Wrist X-Ray 08/11/16 1102 Signed Impressions: Service Date/Time: Thursday, August 11, 2016 11:57 - CONCLUSION: Unremarkable examination of the right wrist. Jose Francisco Guy MD Tibia/Fibula X-Ray 08/11/16 1102 Signed Impressions: Service Date/Time: Thursday, August 11, 2016 12:08 - CONCLUSION: Fracture of proximal tibia including the plateau and fibular head. Maulik Zimmerman MD FACR Femur X-Ray 08/11/16 1102 Signed Impressions: Service Date/Time: Thursday, August 11, 2016 13:34 - CONCLUSION: Intact femur . Large joint effusion suprapatellar bursa. Fractures of proximal tibia and fibula Jose Francisco Guy MD Objective Remarks seen by Dr. Mike Rosales No acute distress LLE: dressing clean and dry. intact. NVI. +knee brace Assessment & Plan Assessment and Plan 1) Left Tibial Plateau fx s/p ORIF - POD #1 2) Closure of fasciotomy incision POD #8 -NWB LLE -daily dressing changes POD #2 with xeroform/4x4/ANNALEE wrap -knee brace at all times except for PT -PROM 0-90 -no active leg lifts or quad sets -CM for rehab placement -DVT prophylaxis - Lovenox 30mg subQ plan for DC to rehab thursday -f/u with Edith or [facility] in 2 weeks Yojana Moore Aug 23, 2016 08:02
[2016-08-23] MEDS: FAMOTIDINE 20 MG TAB PO SCH ×2 (08:09→19:59)
[2016-08-23] MEDS: DOCUSATE SODIUM 50 MG/SENNA 8.6 MG TAB PO SCH ×2 (08:09→19:59)
[2016-08-23] MEDS: CALCIUM/VITAMIN D 250 MG/125 U TAB PO SCH ×3 (08:09→16:53)
[2016-08-23] MEDS: FERROUS SULFATE 325 MG (65 MG ELEMENTAL IRON) TAB PO SCH ×2 (08:09→19:59)
[2016-08-23] MEDS: BACITRACIN TOP OINT 15 GM TUBE TOP SCH (08:10)
[2016-08-23] MEDS: VANCOMYCIN INJ 1,000 MG in SODIUM CHLOR 0.9% 250 ML INJ 250 ML IV SCH ×2 (11:01→22:53)
[2016-08-23] MEDS: ENOXAPARIN SODIUM 40 MG/0.4 ML SYRINGE SQ SCH (13:01)
[2016-08-23] MEDS: MAGNESIUM HYDROXIDE SUSP 30 ML CUP PO SCH (19:56)
[2016-08-23] MEDS: BISACODYL EC 5 MG TABEC PO PRN (19:59)
[2016-08-23] MEDS: diphenhydrAMINE HCL 25 MG CAP PO PRN (22:56)
[2016-08-24] VITALS: BP 147/76; PULSE 111; RESP 22; TEMP 98.8; O2SAT 96
[2016-08-24] MEDS: ACETAMINOPHEN/HYDROcodone 325 MG/10 MG TAB PO PRN ×7 (02:07→22:14)
[2016-08-24] MEDS: ceFAZolin 2 GM PREMIX 50 ML IV SCH ×2 (02:07→09:31)
[2016-08-24] MEDS: LACTATED RINGER'S 1000 ML INJ 1,000 ML IV SCH ×3 (02:07→09:31)
[2016-08-24] MEDS: PCA - TOTAL MG MORPHINE DELIVERED PER SHIFT SCH ×2 (02:29→07:29)
[2016-08-24] MEDS: CYCLOBENZAPRINE HCL 10 MG TAB PO PRN ×3 (05:09→18:23)
[2016-08-24] MEDS: PCA - TOTAL MG DILAUDID DELIVERED PER SHIFT SCH ×3 (05:38→22:01)
[2016-08-24] MEDS: SODIUM CHLORIDE 0.9% FLUSH 5 ML FLUSH IVF SCH ×3 (07:29→20:13)
[2016-08-24 08:00] VITALS: BP 151/68; PULSE 105; RESP 18; TEMP 98.8; O2SAT 95
--- NOTE | 2016-08-24 08:06 | PD.ORT.PN ---
Subjective Subjective Remarks pt complains of continued pain involving left lower extremity Objective Vitals Vital Signs Date Time Temp Pulse Resp B/P Pulse Ox O2 Delivery O2 Flow Rate FiO2 08/24/16 05:38 16 08/24/16 00:00 98.8 111 22 147/76 96 08/23/16 23:38 18 08/23/16 22:18 18 08/23/16 19:45 99.3 106 16 148/71 99 08/23/16 16:00 97.7 100 16 131/69 96 08/23/16 12:00 98.5 112 18 166/80 97 I/O 08/23/16 08/23/16 08/23/16 08/24/16 08/24/16 08/24/16 07:00 15:00 23:00 07:00 15:00 23:00 Intake Total 680 ml 1181 ml 2158 ml 1238 ml Balance 680 ml 1181 ml 2158 ml 1238 ml Intake Oral 680 ml 480 ml 720 ml 600 ml IV Total 701 ml 1438 ml 638 ml # Voids 1 2 5 1 # Bowel Movements 0 3 Result Diagram: 08/23/16 0558 Imaging Last 24 hours Impressions Foot X-Ray 08/11/166 Signed Impressions: Service Date/Time: Thursday, August 11, 2016 13:30 - CONCLUSION: Unremarkable examination of the right foot. Roderick Pedroza Jr., MD Chest CT 08/11/166 Signed Impressions: Service Date/Time: Thursday, August 11, 2016 13:04 - CONCLUSION: 1. CT imaging through the thorax is within normal limits. 2. 1.8 cm nonspecific low attenuation lesion in the upper aspect of the right lobe of the liver. Craig Zimmerman MD Abdomen/Pelvis CT 08/11/166 Signed Impressions: Service Date/Time: Thursday, August 11, 2016 13:04 - CONCLUSION: 1. 1.7 cm low attenuation lesion in the liver possibly representing a small hemangioma. It is too small to definitively characterize. 2. Sclerotic changes around the right sacroiliac joint suggesting a sacroiliitis. 3. CT imaging through the abdomen and pelvis is otherwise unremarkable. Craig Zimmerman MD Elbow X-Ray 08/11/16 1126 Signed Impressions: Service Date/Time: Thursday, August 11, 2016 12:01 - CONCLUSION: Negative examination Jose Francisco Stone, MD Head CT 08/11/16 1115 Signed Impressions: Service Date/Time: Thursday, August 11, 2016 13:04 - CONCLUSION: Normal examination. Jose Francisco Guy MD Cervical Spine CT 08/11/16 1115 Signed Impressions: Service Date/Time: Thursday, August 11, 2016 13:04 - CONCLUSION: Normal examination. Jose Francisco Guy MD Wrist X-Ray 08/11/16 110 Signed Impressions: Service Date/Time: Thursday, August 11, 2016 12:00 - CONCLUSION: Unremarkable examination of the left wrist. Jose Francisco Guy MD Wrist X-Ray 08/11/16 110 Signed Impressions: Service Date/Time: Thursday, August 11, 2016 11:57 - CONCLUSION: Unremarkable examination of the right wrist. Jose Francisco Guy MD Tibia/Fibula X-Ray 08/11/161101 Signed Impressions: Service Date/Time: Thursday, August 11, 2016 12:08 - CONCLUSION: Fracture of proximal tibia including the plateau and fibular head. Maulik Zimmerman MD FACR Femur X-Ray 08/11/161101 Signed Impressions: Service Date/Time: Thursday, August 11, 2016 13:34 - CONCLUSION: Intact femur . Large joint effusion suprapatellar bursa. Fractures of proximal tibia and fibula Jose Francisco Guy MD Objective Remarks seen by Dr. Mike Rosales No acute distress LLE: dressing clean and dry. intact. NVI. 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
[2016-08-24] MEDS: FAMOTIDINE 20 MG TAB PO SCH ×2 (08:15→20:11)
[2016-08-24] MEDS: CALCIUM/VITAMIN D 250 MG/125 U TAB PO SCH ×3 (08:15→18:23)
[2016-08-24] MEDS: DOCUSATE SODIUM 50 MG/SENNA 8.6 MG TAB PO SCH ×2 (08:15→20:11)
[2016-08-24] MEDS: FERROUS SULFATE 325 MG (65 MG ELEMENTAL IRON) TAB PO SCH ×2 (08:15→20:11)
[2016-08-24] MEDS: BACITRACIN TOP OINT 15 GM TUBE TOP SCH (08:16)
[2016-08-24] MEDS: ONDANSETRON HCL 4 MG/2 ML VIAL IV PRN ×3 (08:20→22:16)
[2016-08-24] MEDS: HYDROmorphone HCL PCA 6 MG/30 ML IV SCH ×2 (09:43→20:12)
[2016-08-24 12:00] VITALS: BP 147/73; PULSE 102; RESP 18; TEMP 98; O2SAT 93
[2016-08-24] MEDS: ENOXAPARIN SODIUM 40 MG/0.4 ML SYRINGE SQ SCH (12:15)
[2016-08-24] MEDS: MAGNESIUM HYDROXIDE SUSP 30 ML CUP PO SCH (20:13)
[2016-08-24 20:34] VITALS: BP 144/66; PULSE 104; RESP 18; TEMP 99.1; O2SAT 94
[2016-08-24] MEDS: BISACODYL EC 5 MG TABEC PO PRN (22:14)
[2016-08-25 00:38] VITALS: BP 132/64; PULSE 98; RESP 17; TEMP 98.2; O2SAT 94
[2016-08-25] MEDS: ACETAMINOPHEN/HYDROcodone 325 MG/10 MG TAB PO PRN ×4 (01:20→13:39)
[2016-08-25] MEDS: CYCLOBENZAPRINE HCL 10 MG TAB PO PRN ×3 (01:20→13:38)
[2016-08-25] MEDS: LACTATED RINGER'S 1000 ML INJ 1,000 ML IV SCH (01:31)
[2016-08-25] MEDS: diphenhydrAMINE HCL 25 MG CAP PO PRN ×2 (05:41→09:20)
[2016-08-25] MEDS: PCA - TOTAL MG DILAUDID DELIVERED PER SHIFT SCH (05:44)
--- NOTE | 2016-08-25 07:04 | PD.ORT.PN ---
Subjective Subjective Remarks POD 3 removal of exfix with ORIF left tibial plateau POD 10 s/p fasciotomy closure left leg doing well. pain improving. out of bed with assistance in wheelchair Objective Vitals Vital Signs Date Time Temp Pulse Resp B/P Pulse Ox O2 Delivery O2 Flow Rate FiO2 08/25/16 05:44 18 08/25/16 00:38 98.2 98 17 132/64 94 08/24/16 22:01 18 08/24/16 20:34 99.1 104 18 144/66 94 08/24/16 20:12 18 08/24/16 12:00 98.0 102 18 147/73 93 08/24/16 08:00 98.8 105 18 151/68 95 I/O 08/24/16 08/24/16 08/24/16 08/25/16 08/25/16 08/25/16 07:00 15:00 23:00 07:00 15:00 23:00 Intake Total 1238 ml 1063 ml 963 ml Balance 1238 ml 1063 ml 963 ml Intake Oral 600 ml 360 ml IV Total 638 ml 703 ml 963 ml # Voids 1 1 # Bowel Movements 0 Result Diagram: 08/23/16 0558 Imaging Last 24 hours Impressions Foot X-Ray 08/11/16 1226 Signed Impressions: Service Date/Time: Thursday, August 11, 2016 13:30 - CONCLUSION: Unremarkable examination of the right foot. Roderick Pedroza Jr., MD Chest CT 08/11/16 1226 Signed Impressions: Service Date/Time: Thursday, August 11, 2016 13:04 - CONCLUSION: 1. CT imaging through the thorax is within normal limits. 2. 1.8 cm nonspecific low attenuation lesion in the upper aspect of the right lobe of the liver. Craig Zimmerman MD Abdomen/Pelvis CT 08/11/16 1226 Signed Impressions: Service Date/Time: Thursday, August 11, 2016 13:04 - CONCLUSION: 1. 1.7 cm low attenuation lesion in the liver possibly representing a small hemangioma. It is too small to definitively characterize. 2. Sclerotic changes around the right sacroiliac joint suggesting a sacroiliitis. 3. CT imaging through the abdomen and pelvis is otherwise unremarkable. Craig Zimmerman MD Elbow X-Ray 08/11/16 1126 Signed Impressions: Service Date/Time: Thursday, August 11, 2016 12:01 - CONCLUSION: Negative examination Jose Francisco Guy MD Head CT 08/11/16 1115 Signed Impressions: Service Date/Time: Thursday, August 11, 2016 13:04 - CONCLUSION: Normal examination. Jose Francisco Guy MD Cervical Spine CT 08/11/16 1115 Signed Impressions: Service Date/Time: Thursday, August 11, 2016 13:04 - CONCLUSION: Normal examination. Jose Francisco Guy MD Wrist X-Ray 08/11/16 1102 Signed Impressions: Service Date/Time: Thursday, August 11, 2016 12:00 - CONCLUSION: Unremarkable examination of the left wrist. Jose Francisco Guy MD Wrist X-Ray 08/11/16 1102 Signed Impressions: Service Date/Time: Thursday, August 11, 2016 11:57 - CONCLUSION: Unremarkable examination of the right wrist. Jose Francisco Guy MD Tibia/Fibula X-Ray 08/11/16 1102 Signed Impressions: Service Date/Time: Thursday, August 11, 2016 12:08 - CONCLUSION: Fracture of proximal tibia including the plateau and fibular head. Maulik Zimmerman MD FACR Femur X-Ray 08/11/16 1102 Signed Impressions: Service Date/Time: Thursday, August 11, 2016 13:34 - CONCLUSION: Intact femur . Large joint effusion suprapatellar bursa. Fractures of proximal tibia and fibula Jose Francisco Guy MD Objective Remarks LLE: dressing clean and dry. intact. NVI. +knee brace. NVI with good dorsiflexion. 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
--- NOTE | 2016-08-25 07:06 | HHI.FF ---
Face to Face Verification Diagnosis: (1) Closed fracture of left tibial plateau Physical Therapy Gait training Knee: Knee fracture, Protocol: Left, Non weight bearing Canvas Knee Splint: Remove only with PT Left LE Weight Bearing: Non WB, No Strengthening, No Quad Sets Left LE Range of Motion: Passive ROM (0-90deg) Nursing Dressing Changes: Daily dressing change, [place] wrap, 4x4s, Xeroform I have seen patient Lynda Brizuela on 08/25/16. My clinical findings support the need for the requested home health care services because: Ltd mobility - disease progression I certify that my clinical findings support that this patient is homebound because: Post-op weakness Johnathon Swan Aug 25, 2016 07:06
[2016-08-25 08:00] VITALS: BP 151/77; PULSE 102; RESP 18; TEMP 98; O2SAT 94
[2016-08-25] MEDS: BACITRACIN TOP OINT 15 GM TUBE TOP SCH (09:00)
[2016-08-25] MEDS: FERROUS SULFATE 325 MG (65 MG ELEMENTAL IRON) TAB PO SCH (09:11)
[2016-08-25] MEDS: DOCUSATE SODIUM 50 MG/SENNA 8.6 MG TAB PO SCH (09:12)
[2016-08-25] MEDS: FAMOTIDINE 20 MG TAB PO SCH (09:12)
[2016-08-25] MEDS: CALCIUM/VITAMIN D 250 MG/125 U TAB PO SCH ×2 (09:12→13:39)
[2016-08-25] MEDS: SODIUM CHLORIDE 0.9% FLUSH 5 ML FLUSH IVF SCH (09:15)
[2016-08-25] MEDS: HYDROmorphone HCL PCA 6 MG/30 ML IV SCH (09:19)
[2016-08-25 12:00] VITALS: BP 157/90; PULSE 98; RESP 19; TEMP 97.7; O2SAT 95
[2016-08-25] MEDS: ENOXAPARIN SODIUM 40 MG/0.4 ML SYRINGE SQ SCH (13:39)
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
== END 2016-08-25 15:39 | disposition home or self-care (01) | DRG 493 ==
LOC: NEPE 10:37 → NEDA 13:10 → N06A 19:23
PROVIDERS: ADMIT Orthopaedic Surgery Orthopaedic Trauma; ATTEND Orthopaedic Surgery Orthopaedic Trauma
PROC: 0HQEXZZ Repair Left Lower Arm Skin, External Approach (ICD-10-PCS; 2016-08-11)
PROC: 0KNT0ZZ Release Left Lower Leg Muscle, Open Approach (ICD-10-PCS; 2016-08-12)
PROC: 0QSH35Z Reposition Left Tibia with External Fixation Device, Percutaneous Approach (ICD-10-PCS; principal; 2016-08-12 07:24)
PROC: 0JQP0ZZ Repair Left Lower Leg Subcutaneous Tissue and Fascia, Open Approach (ICD-10-PCS; 2016-08-15)
PROC: 2W0RX6Z Change Pressure Dressing on Left Lower Leg (ICD-10-PCS; 2016-08-15)
PROC: 0QSH04Z Reposition Left Tibia with Internal Fixation Device, Open Approach (ICD-10-PCS; 2016-08-22)
PROC: 0QPHX5Z Removal of External Fixation Device from Left Tibia, External Approach (ICD-10-PCS; 2016-08-22)
DX: S82.142A Displaced bicondylar fracture of left tibia, initial encounter for closed fracture (principal); T79.A22A Traumatic compartment syndrome of left lower extremity, initial encounter; I10 Essential (primary) hypertension; S63.501A Unspecified sprain of right wrist, initial encounter; D18.03 Hemangioma of intra-abdominal structures; D64.9 Anemia, unspecified; S51.012A Laceration without foreign body of left elbow, initial encounter; S63.502A Unspecified sprain of left wrist, initial encounter; E78.5 Hyperlipidemia, unspecified; J45.909 Unspecified asthma, uncomplicated; F17.210 Nicotine dependence, cigarettes, uncomplicated; K21.9 Gastro-esophageal reflux disease without esophagitis; E78.00 Pure hypercholesterolemia, unspecified; Z23 Encounter for immunization; V29.88XA Motorcycle rider (driver) (passenger) injured in other specified transport accidents, initial encounter
CPT/HCPCS: 12002; 27550; 70450; 71260; 72125; 73080; 73110; 73552; 73560; 73590; 73630; 73700; 74177; 76000; 76937; 80048; 83735; 85014; 85018; 85025; 85027; 85610; 85730; 90471; 90714; 93971; 94150; 94640; 94664; 96361; 96374; 96375; C1713; J0131; J0690; J1170; J1200; J1580; J1650; J1885; J2250; J2270; J2405; J2710; J3010; J3370; J7030; J7050; J7120; J7613; L1830; Q9967

== ENCOUNTER → 2016-10-09 | Outpatient (CLI) | payer MEDICAID, OTHER ==
[~2016-10-09] MED LIST: HYDR-3366 PO; WALKER/ADULT/FO1 MIS; WHEEMIS3; XARE10TA PO
== END ==
LOC: HORT 19:08
PROVIDERS: ATTEND Orthopaedic Surgery Orthopaedic Trauma
DX: Z47.89 Encounter for other orthopedic aftercare (principal); Z46.89 Encounter for fitting and adjustment of other specified devices
CPT/HCPCS: L1830